=== PATIENT | male | born 1970 | race Caucasian/White ===

== ENCOUNTER → 2022-02-20 | Outpatient (CLI) | payer OTHER ==
[~2022-02-20] MED LIST: FUROSEMIDE INJ 10 MG/ML 4 ML VIAL ONE
== END ==
LOC: NM 10:01
PROVIDERS: ATTEND Urology
DX: N13.30 Unspecified hydronephrosis (principal)
CPT/HCPCS: 78708; A9562; J1940

== ENCOUNTER → 2022-07-24 | Outpatient (CLI) | payer OTHER ==
[2022-07-21 10:57] LABS: ANION GAP 18.2 mmol/L (8-16); CALCIUM 9.7 mg/dL (8.4-10.2); CREATININE, SERUM 1.08 mg/dL (0.72-1.25); POTASSIUM 4.2 mmol/L (3.5-5.1)
[~2022-07-24] MED LIST changes: +CINNAMON500 MG PO; +FISH OIL PO; -FUROSEMIDE INJ 10 MG/ML 4 ML VIAL ONE; +GLYBURIDE-METF1 EAC1 PO; +JARDIANCE10 MG PO; +KRILL OIL500 MG PO; +LIPITOR10 MG PO; +LOSARTAN POTAS100 MG PO; +METOPROLOL TART50 MG PO; +MULTI-VITAMIN1 EACH PO; +OZEMPIC0.25 MG/0. SC
== END | disposition home or self-care (01) ==
LOC: OR 05:59 → LAB 06:00 → EDSTATUS 08:00
PROVIDERS: ATTEND Urology
DX: N20.0 Calculus of kidney (principal); Z53.8 Procedure and treatment not carried out for other reasons
CPT/HCPCS: 36415; 74018; 80048; 82948; 93005

== ENCOUNTER → 2022-09-04 | Day surgery (SDC) | payer OTHER ==
[2022-09-02 15:35] LABS: CALCIUM 9.4 mg/dL (8.4-10.2); CREATININE, SERUM 1.11 mg/dL (0.72-1.25)
[~2022-09-04] MED LIST changes: +ACETAMINOPHEN 1000 MG/100 ML 100 ML IV ONE; +CEFTRIAXONE 1 GM VIAL ONE; +DEXAMETHASONE SOD PHOS INJ 4 MG/ML SDV ONE; +EPHEDRINE SULFATE INJ 50 MG/ML VIAL ONE; +FENTANYL CITRATE/PF 100MCG/2 ML INJ ONE; +IOPAMIDOL 610MG/1ML 300 MG/ML VIAL IV ONE; +LACTATED RINGER'S 1,000 ML ONE; +LIDOCAINE HCL 2% LOCAL INJ 5 ML SDV VIAL INJ ONE; +ONDANSETRON HCL INJ 2MG/ML 2ML 2 MG/ML VIAL ONE; +PHENYLEPHRINE HCL 1% 10 MG/ML VIAL ONE; +POVIDONE IODINE 0.05% 0.05 % ML PO ONE; +PROPOFOL IV EMULSION 10 MG/ML 20 ML VIAL ONE; +SEVOFLURANE INHAL SOLN 250 ML PEN BTL ONE
[2022-09-04 07:54] VITALS: TEMP 97
[2022-09-04 08:40] VITALS: BP 107/70; RESP 16; O2SAT 97
== END | disposition home or self-care (01) ==
LOC: OR 05:58
PROVIDERS: ATTEND Urology
DX: N20.0 Calculus of kidney (principal); N13.30 Unspecified hydronephrosis; Z01.812 Encounter for preprocedural laboratory examination; Z01.818 Encounter for other preprocedural examination; Z79.84 Long term (current) use of oral hypoglycemic drugs; Z79.85 Long-term (current) use of injectable non-insulin antidiabetic drugs; Z79.899 Other long term (current) drug therapy
CPT/HCPCS: 36415 ×2; 50590; 52332; 74018; 80048; 82948; C1758; C1769; C2617; J0131; J0696; J1100; J2001; J2370; J2405; J2704; J3010; J7121; Q9967

== ENCOUNTER → 2022-09-18 | Day surgery (SDC) | payer OTHER ==
[2022-09-15 15:47] LABS: BASOPHILS # (AUTO) 0.2 (0.0-0.1); BASOPHILS % 1.9 % (0.0-1.0); EOSINOPHILS # (AUTO) 0.5 (0.0-0.4); EOSINOPHILS % 5.8 % (0.0-6.0); HEMATOCRIT 40.2 % (38.2-49.6); HEMOGLOBIN 13.3 g/dL (14.0-18.0); LYMPHOCYTES # (AUTO) 2.4 (1.0-3.2); LYMPHOCYTES % 27.2 % (18.0-39.1); MEAN CORPUSCULAR HEMOGLOBIN 28.7 pg (28-32); MEAN CORPUSCULAR HGB CONC 33.1 g/dL (31-35); MEAN CORPUSCULAR VOLUME 86.8 fL (81-99); MONOCYTES # (AUTO) 0.7 (0.2-0.8); NEUTROPHILS # (AUTO) 5.1 (2.1-6.9); NEUTROPHILS % 56.7 % (38.7-80.0); PLATELET COUNT 314 x10e3/uL (140-360); RED BLOOD COUNT 4.63 x10e6/uL (4.3-5.7); RED CELL DISTRIBUTION WIDTH 13.5 % (11.7-14.4)
[2022-09-15 16:05] LABS: ANION GAP 14.7 mmol/L (8-16); CALCIUM 9.6 mg/dL (8.4-10.2); CREATININE, SERUM 1.09 mg/dL (0.72-1.25); POTASSIUM 4.7 mmol/L (3.5-5.1)
[~2022-09-18] MED LIST changes: -ACETAMINOPHEN 1000 MG/100 ML 100 ML IV ONE; -DEXAMETHASONE SOD PHOS INJ 4 MG/ML SDV ONE; -EPHEDRINE SULFATE INJ 50 MG/ML VIAL ONE; -FENTANYL CITRATE/PF 100MCG/2 ML INJ ONE; +KETAMINE HCL INJ 50 MG/ML 10 ML VIAL ONE; -ONDANSETRON HCL INJ 2MG/ML 2ML 2 MG/ML VIAL ONE; -SEVOFLURANE INHAL SOLN 250 ML PEN BTL ONE
[2022-09-18 09:45] VITALS: BP 122/78
== END | disposition home or self-care (01) ==
LOC: OR 05:53
PROVIDERS: ATTEND Urology
DX: N20.0 Calculus of kidney (principal); N13.5 Crossing vessel and stricture of ureter without hydronephrosis; N13.30 Unspecified hydronephrosis; Z46.6 Encounter for fitting and adjustment of urinary device; N40.1 Benign prostatic hyperplasia with lower urinary tract symptoms; I10 Essential (primary) hypertension; E11.9 Type 2 diabetes mellitus without complications; E66.01 Morbid (severe) obesity due to excess calories; Z01.812 Encounter for preprocedural laboratory examination; Z01.818 Encounter for other preprocedural examination; Z79.84 Long term (current) use of oral hypoglycemic drugs; Z79.85 Long-term (current) use of injectable non-insulin antidiabetic drugs; Z79.899 Other long term (current) drug therapy; Z68.36 Body mass index [BMI] 36.0-36.9, adult; Z87.891 Personal history of nicotine dependence
CPT/HCPCS: 36415 ×2; 52351; 71046; 74018; 74420; 80048; 82948; 85025; C1758 ×2; C1769; J0696; J2001; J2370; J2704; J7121; Q9967

== ENCOUNTER → 2022-10-27 | Outpatient (CLI) | payer OTHER ==
[~2022-10-27] MED LIST changes: +FENTANYL CITRATE/PF 100MCG/2 ML INJ ONE; +IOPAMIDOL 370 MG/ML 100 ML INFUS..BTL INJ ONE; -IOPAMIDOL 610MG/1ML 300 MG/ML VIAL IV ONE; -KETAMINE HCL INJ 50 MG/ML 10 ML VIAL ONE; -LACTATED RINGER'S 1,000 ML ONE; +LIDOCAINE HCL 1% LOCAL INJ 20 ML VIAL ONE; -LIDOCAINE HCL 2% LOCAL INJ 5 ML SDV VIAL INJ ONE; +MIDAZOLAM HCL 2 MG/2 ML VIAL ONE; -PHENYLEPHRINE HCL 1% 10 MG/ML VIAL ONE; -POVIDONE IODINE 0.05% 0.05 % ML PO ONE; -PROPOFOL IV EMULSION 10 MG/ML 20 ML VIAL ONE; +SODIUM CHLORIDE 0.9% 250ML 250 ML ONE
[2022-10-27 13:46] LABS: BASOPHILS # (AUTO) 0.1 (0.0-0.1); BASOPHILS % 1.5 % (0.0-1.0); EOSINOPHILS # (AUTO) 0.5 (0.0-0.4); EOSINOPHILS % 5.7 % (0.0-6.0); HEMATOCRIT 40.1 % (38.2-49.6); HEMOGLOBIN 13.2 g/dL (14.0-18.0); LYMPHOCYTES # (AUTO) 2.7 (1.0-3.2); LYMPHOCYTES % 28.9 % (18.0-39.1); MEAN CORPUSCULAR HGB CONC 32.9 g/dL (31-35); MEAN CORPUSCULAR VOLUME 88.1 fL (81-99); MONOCYTES # (AUTO) 0.9 (0.2-0.8); MONOCYTES % 10.1 % (4.4-11.3); NEUTROPHILS # (AUTO) 4.9 (2.1-6.9); NEUTROPHILS % 53.3 % (38.7-80.0); PLATELET COUNT 327 x10e3/uL (140-360); RED BLOOD COUNT 4.55 x10e6/uL (4.3-5.7); RED CELL DISTRIBUTION WIDTH 13.5 % (11.7-14.4)
[2022-10-27 13:57] LABS: ANION GAP 15.8 mmol/L (8-16); CALCIUM 9.6 mg/dL (8.4-10.2); CREATININE, SERUM 0.93 mg/dL (0.72-1.25); POTASSIUM 4.8 mmol/L (3.5-5.1)
[2022-10-27 13:58] LABS: INR 0.89; PROTHROMBIN TIME 12.5 seconds (11.9-14.5)
[2022-10-27 13:59] LABS: PARTIAL THROMBOPLASTIN TIME 25.8 seconds (23.8-35.5)
== END ==
LOC: US 13:18
PROVIDERS: ATTEND Urology
DX: Z43.6 Encounter for attention to other artificial openings of urinary tract (principal)
CPT/HCPCS: 36415; 76942; 80048; 85025; 85610; 85730; J0696; J2001; J2250; J3010; J7050; Q9967; 50432; 99152; 99153

== ENCOUNTER 2022-11-09 17:17 | Emergency (ER) | payer OTHER ==
[~2022-11-09] VITALS: Ht 193 cm; Wt 122.5 kg
[~2022-11-09 17:17] MED LIST changes: -CEFTRIAXONE 1 GM VIAL ONE; -FENTANYL CITRATE/PF 100MCG/2 ML INJ ONE; -IOPAMIDOL 370 MG/ML 100 ML INFUS..BTL INJ ONE; -LIDOCAINE HCL 1% LOCAL INJ 20 ML VIAL ONE; -MIDAZOLAM HCL 2 MG/2 ML VIAL ONE; -SODIUM CHLORIDE 0.9% 250ML 250 ML ONE
[2022-11-09 19:08] LABS: BASOPHILS # (AUTO) 0.1 (0.0-0.1); BASOPHILS % 0.5 % (0.0-1.0); EOSINOPHILS % 0.4 % (0.0-6.0); HEMATOCRIT 35.6 % (38.2-49.6); HEMOGLOBIN 12.1 g/dL (14.0-18.0); LYMPHOCYTES # (AUTO) 0.6 (1.0-3.2); LYMPHOCYTES % 6.7 % (18.0-39.1); MEAN CORPUSCULAR HEMOGLOBIN 28.8 pg (28-32); MEAN CORPUSCULAR VOLUME 84.8 fL (81-99); MONOCYTES # (AUTO) 1.2 (0.2-0.8); MONOCYTES % 13.4 % (4.4-11.3); NEUTROPHILS # (AUTO) 7.2 (2.1-6.9); NEUTROPHILS % 78.3 % (38.7-80.0); PLATELET COUNT 258 x10e3/uL (140-360); RED CELL DISTRIBUTION WIDTH 13.8 % (11.7-14.4)
[2022-11-09 19:15] LABS: INR 0.96; PROTHROMBIN TIME 13.3 seconds (11.9-14.5)
[2022-11-09 19:16] LABS: PARTIAL THROMBOPLASTIN TIME 27.7 seconds (23.8-35.5)
[2022-11-09 19:22] LABS: ALBUMIN 2.6 g/dL (3.5-5.0); ALBUMIN/GLOBULIN RATIO 0.5 (0.8-2.0); ANION GAP 17.5 mmol/L (8-16); CALCIUM 9.5 mg/dL (8.4-10.2); CREATININE, SERUM 1.98 mg/dL (0.72-1.25); POTASSIUM 3.5 mmol/L (3.5-5.1)
[2022-11-09] MEDS ORDERED: PAXLOVID 300-11 EACH PO (20:00)
[2022-11-09 20:46] VITALS: BP 108/92; PULSE 94; RESP 16; TEMP 98.4; O2SAT 100
== END 2022-11-09 20:49 | disposition home or self-care (01) ==
LOC: ER 17:21
DX: R05.9 Cough, unspecified (principal); U07.1 COVID-19; E11.65 Type 2 diabetes mellitus with hyperglycemia; I10 Essential (primary) hypertension; Z87.442 Personal history of urinary calculi
CPT/HCPCS: 36415; 71045; 80053; 85025; 85610; 85730; 87040; 99284; U0002

== ENCOUNTER → 2023-10-01 | Outpatient (REF) | payer OTHER ==
[~2023-10-01] MED LIST changes: +BANABA LEAF PO; +CEPHALEXIN500 MG PO; +CINNAMON PO; +CIPRO500 MG PO; +NEURONTIN100 MG PO; +ONDANSETRON ODT4 MG SL; +PAXLOVID 300-11 EACH PO; +SENOKOT-S TABL1 EACH PO; +TYLENOL 3 PO
== END ==
LOC: RAD 10:43
PROVIDERS: ATTEND Urology
DX: N20.0 Calculus of kidney (principal)
CPT/HCPCS: 74018

== ENCOUNTER → 2023-12-14 | Day surgery (SDC) | payer OTHER ==
[2023-12-13 11:37] LABS: ANION GAP 14.8 mmol/L (8-16); CALCIUM 9.5 mg/dL (8.4-10.2); CREATININE, SERUM 3.3 mg/dL (0.72-1.25); POTASSIUM 4.8 mmol/L (3.5-5.1)
[~2023-12-14] MED LIST changes: +DEXAMETHASONE SOD PHOS INJ 4 MG/ML SDV ONE; +FENTANYL CITRATE/PF 100MCG/2 ML INJ ONE; +GENTAMICIN SULFATE 40 MG/ML 2 ML VIAL ONE; +IOPAMIDOL 610MG/1ML 300 MG/ML VIAL IV ONE; +LIDOCAINE HCL 2% LOCAL INJ 5 ML SDV VIAL INJ ONE; +ONDANSETRON HCL INJ 2MG/ML 2ML 2 MG/ML VIAL ONE; +PROPOFOL IV EMULSION 10 MG/ML 20 ML VIAL ONE; +SEVOFLURANE INHAL SOLN 250 ML PEN BTL ONE
[2023-12-14] MEDS: LACTATED RINGER'S 1,000 ML ONE (11:55)
[2023-12-14] MEDS: CEFAZOLIN SODIUM 2 GM ONE (11:56)
[2023-12-14] MEDS: ONDANSETRON HCL INJ 2MG/ML 2ML 2 MG/ML VIAL ONE (13:56)
[2023-12-14 14:25] VITALS: BP 155/93; PULSE 87; RESP 16; O2SAT 97
== END | disposition home or self-care (01) ==
LOC: OR 11:12
PROVIDERS: ATTEND Urology
DX: N20.0 Calculus of kidney (principal); Z46.6 Encounter for fitting and adjustment of urinary device; N39.0 Urinary tract infection, site not specified; N32.89 Other specified disorders of bladder; G47.33 Obstructive sleep apnea (adult) (pediatric); I10 Essential (primary) hypertension; E78.5 Hyperlipidemia, unspecified; E11.9 Type 2 diabetes mellitus without complications; E66.9 Obesity, unspecified; Z88.1 Allergy status to other antibiotic agents; Z01.810 Encounter for preprocedural cardiovascular examination; Z01.812 Encounter for preprocedural laboratory examination; Z01.818 Encounter for other preprocedural examination; Z79.84 Long term (current) use of oral hypoglycemic drugs; Z79.85 Long-term (current) use of injectable non-insulin antidiabetic drugs; Z79.899 Other long term (current) drug therapy
CPT/HCPCS: 36415; 52332; 52351; 71046; 74420; 80048; 87086; 93005; C1758; C1766; C2617; J1100; J1580; J2001; J2405; J2704; J3010; J7121; Q9967

== ENCOUNTER → 2024-03-24 | Outpatient (REF) | payer OTHER ==
[~2024-03-24] MED LIST changes: -DEXAMETHASONE SOD PHOS INJ 4 MG/ML SDV ONE; -FENTANYL CITRATE/PF 100MCG/2 ML INJ ONE; -GENTAMICIN SULFATE 40 MG/ML 2 ML VIAL ONE; -IOPAMIDOL 610MG/1ML 300 MG/ML VIAL IV ONE; -LIDOCAINE HCL 2% LOCAL INJ 5 ML SDV VIAL INJ ONE; -ONDANSETRON HCL INJ 2MG/ML 2ML 2 MG/ML VIAL ONE; -PROPOFOL IV EMULSION 10 MG/ML 20 ML VIAL ONE; -SEVOFLURANE INHAL SOLN 250 ML PEN BTL ONE
== END ==
LOC: RAD 11:50
PROVIDERS: ATTEND Urology
DX: N20.0 Calculus of kidney (principal)
CPT/HCPCS: 74018

== ENCOUNTER 2024-04-04 17:00 | Inpatient (IN) | payer OTHER ==
[~2024-04-04] VITALS: Ht 182.9 cm; Wt 112.2 kg
[2024-04-04 18:13] LABS: BASOPHILS # (AUTO) 0.1 (0.0-0.1); BASOPHILS % 1.2 % (0.0-1.0); EOSINOPHILS # (AUTO) 0.3 (0.0-0.4); EOSINOPHILS % 3.7 % (0.0-6.0); HEMATOCRIT 28.6 % (38.2-49.6); HEMOGLOBIN 8.3 g/dL (14.0-18.0); LYMPHOCYTES # (AUTO) 1.7 (1.0-3.2); LYMPHOCYTES % 22.4 % (18.0-39.1); MEAN CORPUSCULAR HEMOGLOBIN 27.8 pg (28-32); MEAN CORPUSCULAR VOLUME 95.7 fL (81-99); MONOCYTES # (AUTO) 0.6 (0.2-0.8); MONOCYTES % 8.4 % (4.4-11.3); NEUTROPHILS # (AUTO) 4.7 (2.1-6.9); NEUTROPHILS % 62.6 % (38.7-80.0); PLATELET COUNT 430 x10e3/uL (140-360); RED BLOOD COUNT 2.99 x10e6/uL (4.3-5.7); RED CELL DISTRIBUTION WIDTH 15.1 % (11.7-14.4); WHITE BLOOD COUNT 7.51 x10e3/uL (4.8-10.8)
[2024-04-04 18:30] LABS: ALBUMIN 3.3 g/dL (3.5-5.0); ALBUMIN/GLOBULIN RATIO 0.8 (0.8-2.0); ANION GAP 14.4 mmol/L (8-16); BILIRUBIN,TOTAL 0.2 mg/dL (0.2-1.2); CALCIUM 9.6 mg/dL (8.4-10.2); CREATININE, SERUM 3.9 mg/dL (0.72-1.25); TOTAL PROTEIN 7.5 g/dL (6.5-8.1)
[2024-04-04 18:32] LABS: POTASSIUM 5.4 mmol/L (3.5-5.1)
[2024-04-04 18:33] LABS: BILIRUBIN,URINE NEGATIVE (NEGATIVE); CLARITY,URINE TURBID (CLEAR); COLOR,URINE YELLOW (YELLOW); GLUCOSE, URINE NEGATIVE (NEGATIVE); KETONES,URINE NEGATIVE (NEGATIVE); LEUKOCYTE ESTERASE ,URINE LARGE (NEGATIVE); PH,URINE 6 (5 - 7); PROTEIN,URINE DIPSTICK >=300 (NEGATIVE); URINE UROBILINOGEN 1 mg/dL (0.2 - 1)
[2024-04-04 18:35] LABS: TROPONIN I 0.002 ng/mL (0-0.300)
[2024-04-04 18:44] LABS: AMORPHOUS SEDIMENT,URINE MODERATE (FEW); BACTERIA,URINE MODERATE /HPF; NITRITE,URINE POSITIVE (NEGATIVE)
[2024-04-04] MEDS: SODIUM CHLORIDE 0.9% 1000ML 1,000 ML IV SCH (20:07)
[2024-04-04] MEDS: SOD POLYSTYRENE SULFONATE SUSP 15 GM/60 ML BTL PO ONE (20:10)
[2024-04-04] MEDS: SODIUM BICARBONATE 8.4% INJ 50 ML SYR IV STA (20:14)
[2024-04-04] MEDS: INSULIN REGULAR, HUMAN 100 UNIT/1 ML IV ONE (20:16)
[2024-04-04] MEDS: CALCIUM GLUC 1 G/50 ML NACL 50 ML IV SCH (20:16)
[2024-04-04] MEDS: DEXTROSE 50% SYRINGE 50 ML IV STA (20:17)
[2024-04-04] MEDS ORDERED: CALCIUM GLUC 1 G/50 ML NACL 100 ML IV ONE (20:28)
[2024-04-04 21:00] VITALS: PULSE 118; RESP 20; O2SAT 97
[2024-04-04] MEDS: ALBUTEROL SULF 0.083% NEB SOLN 3 ML NEB NEB STA (21:07)
[2024-04-04] MEDS: METOPROLOL TARTRATE 50 MG TAB PO ONE (21:18)
[2024-04-04 21:48] VITALS: TEMP 97.8
[2024-04-04 22:59] VITALS: PULSE 108; RESP 15
[2024-04-04 23:47] VITALS: BP 150/62; PULSE 106; TEMP 98.1; O2SAT 98
[2024-04-05] VITALS (21 sets, daily range): BP systolic 100–137; BP diastolic 56–110; PULSE 86–119; RESP 12–20; TEMP 97.4–99; O2SAT 81–100
[2024-04-05] MEDS: Morphine 4mg INJECTION 4 MG/ML INJ IV PRN (00:23)
[2024-04-05 06:57] LABS: BASOPHILS # (AUTO) 0.1 (0.0-0.1); BASOPHILS % 0.9 % (0.0-1.0); EOSINOPHILS # (AUTO) 0.3 (0.0-0.4); EOSINOPHILS % 3.4 % (0.0-6.0); HEMATOCRIT 25.2 % (38.2-49.6); LYMPHOCYTES # (AUTO) 1.8 (1.0-3.2); LYMPHOCYTES % 22.3 % (18.0-39.1); MEAN CORPUSCULAR HEMOGLOBIN 28.2 pg (28-32); MONOCYTES # (AUTO) 0.9 (0.2-0.8); MONOCYTES % 10.9 % (4.4-11.3); NEUTROPHILS # (AUTO) 4.8 (2.1-6.9); NEUTROPHILS % 60.5 % (38.7-80.0); PLATELET COUNT 485 x10e3/uL (140-360); RED BLOOD COUNT 2.77 x10e6/uL (4.3-5.7); WHITE BLOOD COUNT 7.91 x10e3/uL (4.8-10.8)
[2024-04-05 07:10] LABS: HEMOGLOBIN 7.8 g/dL (14.0-18.0)
[2024-04-05 07:17] LABS: ANION GAP 15.1 mmol/L (8-16); CALCIUM 9.1 mg/dL (8.4-10.2); CREATININE, SERUM 3.91 mg/dL (0.72-1.25); POTASSIUM 4.1 mmol/L (3.5-5.1)
[2024-04-05] MEDS ORDERED: ONDANSETRON HCL 4 MG ORAL DISINTEGRATING TAB SL PRN (08:15)
[2024-04-05 09:13] LABS: % IRON SATURATION 11 % (15-50); IRON 30 ug/dL (65-175); TOTAL IRON BINDING CAPACITY 284 ug/dL (261-478); TRANSFERRIN 203 mg/dL (174-364)
[2024-04-05] MEDS: EMPAGLIFLOZIN 10 MG TABLET PO SCH (09:16)
[2024-04-05] MEDS: ONDANSETRON HCL INJ 2MG/ML 2ML 2 MG/ML VIAL IV PRN (09:18)
[2024-04-05] MEDS: METOPROLOL TARTRATE 50 MG TAB PO SCH (09:18)
[2024-04-05 09:48] LABS: FOLATE 14.8 ng/mL (7.0-15.4)
[2024-04-05] MEDS ORDERED: PROBIOTIC & AC1 EACH PO (17:26)
[2024-04-05] MEDS ORDERED: MANNOSE50 GM PO (17:32)
[2024-04-05] MEDS ORDERED: CRANBERRY465 MG PO (17:32)
[2024-04-05] MEDS ORDERED: PROBIOTIC1 EAC1 PO (17:36)
[2024-04-05] MEDS ORDERED: AZO CRANBERRY250 MG PO (17:41)
[2024-04-05] MEDS ORDERED: GENTAMICIN SULF15 G2 TOP (17:41)
[2024-04-05] MEDS ORDERED: INFLUENZA VIRUS VAC SPLIT INJ 0.5 ML SYR IM SCH (18:00)
[2024-04-05] MEDS: IRON SUCROSE 100 MG in SODIUM CHLORIDE 0.9% 100 ML IV SCH (18:04)
[2024-04-05] MEDS: EPOETIN ALFA-EPBX 10,000 UNIT/ML VIAL SC SCH (18:15)
[2024-04-05] MEDS: ATORVASTATIN 20 MG TAB PO SCH (21:19)
[2024-04-06] VITALS (8 sets, daily range): BP systolic 104–164; BP diastolic 67–107; PULSE 89–120; RESP 18–20; TEMP 97.3–98.1; O2SAT 97–100
[2024-04-06 05:35] LABS: BASOPHILS # (AUTO) 0.1 (0.0-0.1); BASOPHILS % 1.1 % (0.0-1.0); EOSINOPHILS # (AUTO) 0.3 (0.0-0.4); EOSINOPHILS % 3.9 % (0.0-6.0); HEMOGLOBIN 7.9 g/dL (14.0-18.0); LYMPHOCYTES # (AUTO) 0.9 (1.0-3.2); MEAN CORPUSCULAR HEMOGLOBIN 27.6 pg (28-32); MEAN CORPUSCULAR HGB CONC 30.4 g/dL (31-35); MEAN CORPUSCULAR VOLUME 90.9 fL (81-99); MONOCYTES # (AUTO) 0.9 (0.2-0.8); MONOCYTES % 13.5 % (4.4-11.3); NEUTROPHILS # (AUTO) 4.2 (2.1-6.9); NEUTROPHILS % 65.8 % (38.7-80.0); PLATELET COUNT 453 x10e3/uL (140-360); RED BLOOD COUNT 2.86 x10e6/uL (4.3-5.7); RED CELL DISTRIBUTION WIDTH 15.2 % (11.7-14.4); WHITE BLOOD COUNT 6.37 x10e3/uL (4.8-10.8)
[2024-04-06 06:18] LABS: CALCIUM 9.5 mg/dL (8.4-10.2); CREATININE, SERUM 3.31 mg/dL (0.72-1.25)
[2024-04-06 06:30] LABS: MAGNESIUM 1.9 MG/DL (1.3-2.1); PHOSPHORUS 4.9 MG/DL (2.3-4.7)
[2024-04-06] MEDS: SODIUM BICARBONATE 650 MG TAB PO SCH (08:37)
[2024-04-06] MEDS: FLUCONAZOLE 100 MG/NS 50 ML 50 ML IV SCH (12:02)
[2024-04-07 03:12] VITALS: BP 136/107; PULSE 104; RESP 20; TEMP 99.2; O2SAT 99
[2024-04-07 05:54] LABS: ABG HCO3 20 mmol/L (22-26); ABG PCO2 40 mmHg (35-45); ABG PH 7.31 (7.35-7.45); ABG PO2 71 mmHg (80-105); ABG TCO2 21
[2024-04-07 06:18] LABS: ANION GAP 15.1 mmol/L (8-16); CALCIUM 9.8 mg/dL (8.4-10.2); CREATININE, SERUM 3.22 mg/dL (0.72-1.25); POTASSIUM 4.1 mmol/L (3.5-5.1)
[2024-04-07 08:00] VITALS: BP 133/86; PULSE 110; RESP 19; TEMP 98; O2SAT 99
[2024-04-07] MEDS: POLYETHYLENE GLYCOL 3350 17 GM PACK PO SCH (09:46)
[2024-04-07] MEDS: SENNA-S TABLET PO SCH (09:46)
[2024-04-07] MEDS: PHENAZOPYRIDINE HCL 100 MG TAB PO SCH (09:46)
[2024-04-07 12:00] VITALS: BP 131/104; PULSE 100; RESP 19; TEMP 97.5; O2SAT 100
[2024-04-07 13:34] VITALS: BP 131/104; PULSE 100; RESP 19; TEMP 97.5; O2SAT 100
[2024-04-07] MEDS: HYDROCODONE/APAP 10MG-325MG TAB PO PRN (14:38)
[2024-04-07 16:02] VITALS: BP 122/76; PULSE 98; RESP 19; TEMP 97.8; O2SAT 100
[2024-04-07 20:00] VITALS: BP 156/78; PULSE 106; RESP 20; TEMP 97.8; O2SAT 100
[2024-04-08] VITALS (7 sets, daily range): BP systolic 125–185; BP diastolic 66–96; PULSE 91–122; RESP 19–20; TEMP 97.2–99.5; O2SAT 97–100
[2024-04-08 05:56] LABS: ANION GAP 14.9 mmol/L (8-16); CALCIUM 9.3 mg/dL (8.4-10.2); CREATININE, SERUM 3.16 mg/dL (0.72-1.25); POTASSIUM 3.9 mmol/L (3.5-5.1)
[2024-04-08 11:09] LABS: CREATININE,URINE RANDOM 41.03 mg/dL (63-166)
[2024-04-08] MEDS: TAMSULOSIN HCL 0.4 MG CAP PO SCH (16:00)
[2024-04-09] VITALS (8 sets, daily range): BP systolic 116–158; BP diastolic 69–104; PULSE 89–119; RESP 18–20; TEMP 97.9–98.3; O2SAT 97–100
[2024-04-10] VITALS (7 sets, daily range): BP systolic 126–152; BP diastolic 70–112; PULSE 100–125; RESP 16–20; TEMP 97.7–98.2; O2SAT 96–100
[2024-04-10 06:16] LABS: BASOPHILS # (AUTO) 0.1 (0.0-0.1); EOSINOPHILS # (AUTO) 0.2 (0.0-0.4); EOSINOPHILS % 3.9 % (0.0-6.0); HEMATOCRIT 24.7 % (38.2-49.6); HEMOGLOBIN 7.3 g/dL (14.0-18.0); LYMPHOCYTES % 21.2 % (18.0-39.1); MEAN CORPUSCULAR HGB CONC 29.6 g/dL (31-35); MEAN CORPUSCULAR VOLUME 94.6 fL (81-99); MONOCYTES # (AUTO) 0.8 (0.2-0.8); MONOCYTES % 16.8 % (4.4-11.3); NEUTROPHILS # (AUTO) 2.7 (2.1-6.9); NEUTROPHILS % 56.3 % (38.7-80.0); PLATELET COUNT 422 x10e3/uL (140-360); RED BLOOD COUNT 2.61 x10e6/uL (4.3-5.7); RED CELL DISTRIBUTION WIDTH 15.1 % (11.7-14.4); WHITE BLOOD COUNT 4.82 x10e3/uL (4.8-10.8)
[2024-04-10 06:45] LABS: ANION GAP 14.8 mmol/L (8-16); CALCIUM 9.5 mg/dL (8.4-10.2); CREATININE, SERUM 3.11 mg/dL (0.72-1.25); POTASSIUM 3.8 mmol/L (3.5-5.1)
[2024-04-10 07:21] LABS: MAGNESIUM 1.7 MG/DL (1.3-2.1); PHOSPHORUS 3.1 MG/DL (2.3-4.7)
[2024-04-10 08:03] LABS: TOTAL PROTEIN, URINE 202.2 mg/dL (1-14)
[2024-04-10] MEDS: SODIUM CHLORIDE 0.9% 250ML 250 ML IV ONE (09:50)
[2024-04-10] MEDS: FUROSEMIDE INJ 10 MG/ML 2 ML VIAL IV SCH (12:20)
[2024-04-10] MEDS: FLUCONAZOLE 100 MG/NS 50 ML 50 ML IV SCH (17:57)
[2024-04-11 01:22] VITALS: TEMP 98.2; O2SAT 98
[2024-04-11 02:02] VITALS: BP 142/91; PULSE 105; RESP 20; TEMP 98.2; O2SAT 98
[2024-04-11 05:16] VITALS: BP 143/98; PULSE 110; RESP 20; TEMP 98.4; O2SAT 98
[2024-04-11 06:05] LABS: CALCIUM 9.4 mg/dL (8.4-10.2); CREATININE, SERUM 3.09 mg/dL (0.72-1.25)
[2024-04-11 08:17] VITALS: BP 157/89; PULSE 107; RESP 19; TEMP 98.6; O2SAT 98
[2024-04-11 10:14] LABS: CALCIUM 9.1 mg/dL (8.7-10.2)
[2024-04-11 12:16] VITALS: BP 138/80; PULSE 119; RESP 20; TEMP 99.1; O2SAT 100
[2024-04-11 13:23] LABS: GLOBULIN TOTAL 3.6; SPE ALPHA 1 GLOBULIN 0.4; SPE ALPHA 2 GLOBULIN 1.1; SPE GAMMA GLOBULIN 1.2; SPE TOTAL PROTEIN 6.4
[2024-04-11 13:24] LABS: A/G RATIO 0.8; KAPPA/LAMBDA RATIO 1.25; LAMBDA LIGHT CHAINS 67.8
[2024-04-20] MEDS ORDERED: FLOMAX0.4 MG PO (15:37)
[2024-04-20] MEDS ORDERED: TYLENOL #3 (15:38)
== END 2024-04-11 13:30 | disposition home or self-care (01) | DRG 660 ==
LOC: ER 18:11 → ERHOLD 19:27 → ICU 23:35 → MED/SURG2 04-05 18:31
PROVIDERS: ADMIT Internal Medicine; ATTEND Internal Medicine
PROC: 4A133R1 Monitoring of Arterial Saturation, Peripheral, Percutaneous Approach (ICD-10-PCS; principal; 2024-04-06)
PROC: 30233N1 Transfusion of Nonautologous Red Blood Cells into Peripheral Vein, Percutaneous Approach (ICD-10-PCS; 2024-04-10)
PROC: 0T788DZ Dilation of Bilateral Ureters with Intraluminal Device, Via Natural or Artificial Opening Endoscopic (ICD-10-PCS; 2024-04-10)
PROC: 0TP98DZ Removal of Intraluminal Device from Ureter, Via Natural or Artificial Opening Endoscopic (ICD-10-PCS; 2024-04-10)
PROC: 0TF68ZZ Fragmentation in Right Ureter, Via Natural or Artificial Opening Endoscopic (ICD-10-PCS; 2024-04-10)
DX: N13.2 Hydronephrosis with renal and ureteral calculous obstruction (principal); E87.20 Acidosis, unspecified; L03.115 Cellulitis of right lower limb; L97.919 Non-pressure chronic ulcer of unspecified part of right lower leg with unspecified severity; E11.621 Type 2 diabetes mellitus with foot ulcer; E11.22 Type 2 diabetes mellitus with diabetic chronic kidney disease; I12.9 Hypertensive chronic kidney disease with stage 1 through stage 4 chronic kidney disease, or unspecified chronic kidney disease; N18.4 Chronic kidney disease, stage 4 (severe); N17.9 Acute kidney failure, unspecified; D63.1 Anemia in chronic kidney disease; E11.51 Type 2 diabetes mellitus with diabetic peripheral angiopathy without gangrene; E11.42 Type 2 diabetes mellitus with diabetic polyneuropathy; E87.5 Hyperkalemia; E78.5 Hyperlipidemia, unspecified; N13.9 Obstructive and reflux uropathy, unspecified; R31.29 Other microscopic hematuria; R30.0 Dysuria; E66.01 Morbid (severe) obesity due to excess calories; Z68.33 Body mass index [BMI] 33.0-33.9, adult; Z79.84 Long term (current) use of oral hypoglycemic drugs; Z79.85 Long-term (current) use of injectable non-insulin antidiabetic drugs; Z89.432 Acquired absence of left foot; Z89.421 Acquired absence of other right toe(s); Z87.440 Personal history of urinary (tract) infections; Z98.84 Bariatric surgery status; Z88.1 Allergy status to other antibiotic agents; Z87.891 Personal history of nicotine dependence
CPT/HCPCS: 36415; 51700; 74176; 74420; 80048; 80053; 81001; 81050; 82550; 82570; 82607; 82746; 82805; 82948; 83540; 83735; 83970; 84100; 84156; 84165; 84466; 84484; 84550; 85025; 86039; 86162; 86850; 86900; 86920; 87040; 87086; 93005; 94640; 94799; 99252; 99284; C1758; C1769; C2617; J0612; J0696; J1100; J1450; J1756; J1940; J2003; J2270; J2405; J2543; J7030; J7050; J7799; P9016

== ENCOUNTER 2024-04-24 07:09 | Inpatient (IN) | payer OTHER ==
[2024-04-24] VITALS (7 sets, daily range): BP systolic 127–151; BP diastolic 68–94; PULSE 78–95; RESP 16–20; TEMP 97.5–98.2; O2SAT 98–100
[~2024-04-24] VITALS: Ht 182.9 cm; Wt 112.0 kg
[~2024-04-24 07:09] MED LIST changes: +AZO CRANBERRY250 MG PO; +CRANBERRY465 MG PO; +FLOMAX0.4 MG PO; +GENTAMICIN SULF15 G2 TOP; +MANNOSE50 GM PO; +PROBIOTIC & AC1 EACH PO; +PROBIOTIC1 EAC1 PO; +TYLENOL #3
[2024-04-24 07:41] LABS: BASOPHILS # (AUTO) 0.2 (0.0-0.1); BASOPHILS % 1.7 % (0.0-1.0); EOSINOPHILS # (AUTO) 0.4 (0.0-0.4); EOSINOPHILS % 4.5 % (0.0-6.0); HEMATOCRIT 32.5 % (38.2-49.6); HEMOGLOBIN 9.5 g/dL (14.0-18.0); LYMPHOCYTES # (AUTO) 2.5 (1.0-3.2); LYMPHOCYTES % 27.6 % (18.0-39.1); MEAN CORPUSCULAR HEMOGLOBIN 27.8 pg (28-32); MEAN CORPUSCULAR HGB CONC 29.2 g/dL (31-35); MONOCYTES # (AUTO) 0.8 (0.2-0.8); MONOCYTES % 8.8 % (4.4-11.3); NEUTROPHILS # (AUTO) 5.1 (2.1-6.9); NEUTROPHILS % 56.4 % (38.7-80.0); PLATELET COUNT 523 x10e3/uL (140-360); RED BLOOD COUNT 3.42 x10e6/uL (4.3-5.7); RED CELL DISTRIBUTION WIDTH 15.7 % (11.7-14.4); WHITE BLOOD COUNT 9.06 x10e3/uL (4.8-10.8)
[2024-04-24] MEDS: SODIUM CHLORIDE 0.9% 1000ML 1,000 ML IV SCH (07:45)
[2024-04-24] MEDS ORDERED: ONDANSETRON HCL INJ 2MG/ML 2ML 2 MG/ML VIAL IV PRN (07:45)
[2024-04-24 07:55] LABS: INR 0.94; PARTIAL THROMBOPLASTIN TIME 25.5 seconds (23.8-35.5); PROTHROMBIN TIME 13.1 seconds (11.9-14.5)
[2024-04-24] MEDS: SODIUM CHLORIDE 0.9% 1000ML 1,000 ML IV STA (08:07)
[2024-04-24] MEDS: Morphine 4mg INJECTION 4 MG/ML INJ IV STA (08:08)
[2024-04-24] MEDS: ONDANSETRON HCL INJ 2MG/ML 2ML 2 MG/ML VIAL IV STA (08:08)
[2024-04-24 08:09] LABS: ALBUMIN 3.1 g/dL (3.5-5.0); ALBUMIN/GLOBULIN RATIO 0.7 (0.8-2.0); ANION GAP 15.5 mmol/L (8-16); BILIRUBIN,TOTAL 0.2 mg/dL (0.2-1.2); CALCIUM 9.6 mg/dL (8.4-10.2); CREATININE, SERUM 2.61 mg/dL (0.72-1.25); MAGNESIUM 1.8 MG/DL (1.3-2.1); POTASSIUM 4.5 mmol/L (3.5-5.1); TOTAL PROTEIN 7.6 g/dL (6.5-8.1)
[2024-04-24 08:16] LABS: CLARITY,URINE CLOUDY (CLEAR); COLOR,URINE YELLOW (YELLOW)
[2024-04-24 08:17] LABS: BILIRUBIN,URINE NEGATIVE (NEGATIVE); GLUCOSE, URINE NEGATIVE (NEGATIVE); KETONES,URINE NEGATIVE (NEGATIVE); LEUKOCYTE ESTERASE ,URINE LARGE (NEGATIVE); NITRITE,URINE NEGATIVE (NEGATIVE); PH,URINE 6 (5 - 7); PROTEIN,URINE DIPSTICK >=300 (NEGATIVE); URINE UROBILINOGEN 0.2 mg/dL (0.2 - 1)
[2024-04-24 08:31] LABS: BACTERIA,URINE MODERATE /HPF; EPITHELIAL CELLS,URINE FEW /LPF
[2024-04-24 08:32] LABS: RBC,URINE 0-5 /HPF (0-5); WBC,URINE (MAN) >50 /HPF (0-5)
[2024-04-24] MEDS: DEXTROSE 50% SYRINGE 50 ML IV ONE (09:14)
[2024-04-24] MEDS ORDERED: DEXTROSE 50% SYRINGE 50 ML IV PRN (09:15)
[2024-04-24] MEDS: INSULIN LISPRO 100 UNIT/1 ML 3ML VIAL SQ SCH (11:30)
[2024-04-24] MEDS ORDERED: PROPOFOL IV EMULSION 10 MG/ML 20 ML VIAL ONE (13:53)
[2024-04-24] MEDS ORDERED: MIDAZOLAM HCL 2 MG/2 ML VIAL ONE (13:53)
[2024-04-24] MEDS ORDERED: FENTANYL CITRATE/PF 100MCG/2 ML INJ ONE (13:53)
[2024-04-24] MEDS ORDERED: LIDOCAINE HCL 2% LOCAL INJ 5 ML SDV VIAL INJ ONE (13:56)
[2024-04-24] MEDS: METOPROLOL TARTRATE 50 MG TAB PO SCH (17:00)
[2024-04-24] MEDS ORDERED: PHENAZOPYRIDINE HCL 100 MG TAB PO PRN (17:45)
[2024-04-24] MEDS: Morphine 4mg INJECTION 4 MG/ML INJ IV PRN (21:14)
[2024-04-25] VITALS (7 sets, daily range): BP systolic 110–151; BP diastolic 71–94; PULSE 76–115; RESP 18–22; TEMP 97.5–98.1; O2SAT 96–100
[2024-04-25] MEDS: ACETAMINOPHEN/CODEINE 300MG - 30MG TAB PO PRN (05:40)
[2024-04-25 05:50] LABS: BASOPHILS % 0.3 % (0.0-1.0); HEMATOCRIT 30.4 % (38.2-49.6); HEMOGLOBIN 9.5 g/dL (14.0-18.0); LYMPHOCYTES # (AUTO) 0.4 (1.0-3.2); LYMPHOCYTES % 2.8 % (18.0-39.1); MEAN CORPUSCULAR HEMOGLOBIN 28.2 pg (28-32); MEAN CORPUSCULAR HGB CONC 31.3 g/dL (31-35); MEAN CORPUSCULAR VOLUME 90.2 fL (81-99); MONOCYTES # (AUTO) 0.4 (0.2-0.8); MONOCYTES % 2.5 % (4.4-11.3); NEUTROPHILS # (AUTO) 14.9 (2.1-6.9); NEUTROPHILS % 93.6 % (38.7-80.0); PLATELET COUNT 542 x10e3/uL (140-360); RED BLOOD COUNT 3.37 x10e6/uL (4.3-5.7); RED CELL DISTRIBUTION WIDTH 15.5 % (11.7-14.4); WHITE BLOOD COUNT 15.89 x10e3/uL (4.8-10.8)
[2024-04-25 06:15] LABS: ALBUMIN 3.1 g/dL (3.5-5.0); ALBUMIN/GLOBULIN RATIO 0.7 (0.8-2.0); ANION GAP 16.3 mmol/L (8-16); BILIRUBIN,TOTAL 0.3 mg/dL (0.2-1.2); CALCIUM 8.9 mg/dL (8.4-10.2); CREATININE, SERUM 3.14 mg/dL (0.72-1.25); TOTAL PROTEIN 7.3 g/dL (6.5-8.1)
[2024-04-25 06:34] LABS: POTASSIUM 5.3 mmol/L (3.5-5.1)
[2024-04-25] MEDS: GLIPIZIDE 5 MG TAB ER PO SCH (08:19)
[2024-04-25] MEDS: TAMSULOSIN HCL 0.4 MG CAP PO SCH (08:20)
[2024-04-26] VITALS (7 sets, daily range): BP systolic 134–151; BP diastolic 71–95; PULSE 88–107; RESP 18–20; TEMP 97.5–98.3; O2SAT 98–100
[2024-04-26 05:41] LABS: BASOPHILS # (AUTO) 0.1 (0.0-0.1); BASOPHILS % 0.5 % (0.0-1.0); EOSINOPHILS # (AUTO) 0.1 (0.0-0.4); EOSINOPHILS % 0.8 % (0.0-6.0); HEMATOCRIT 29.8 % (38.2-49.6); HEMOGLOBIN 9.3 g/dL (14.0-18.0); LYMPHOCYTES # (AUTO) 1.3 (1.0-3.2); LYMPHOCYTES % 12.1 % (18.0-39.1); MEAN CORPUSCULAR HEMOGLOBIN 28.1 pg (28-32); MEAN CORPUSCULAR HGB CONC 31.2 g/dL (31-35); MONOCYTES # (AUTO) 0.9 (0.2-0.8); MONOCYTES % 8.6 % (4.4-11.3); NEUTROPHILS % 77.2 % (38.7-80.0); PLATELET COUNT 531 x10e3/uL (140-360); RED BLOOD COUNT 3.31 x10e6/uL (4.3-5.7); RED CELL DISTRIBUTION WIDTH 15.7 % (11.7-14.4); WHITE BLOOD COUNT 10.39 x10e3/uL (4.8-10.8)
[2024-04-26 10:12] LABS: CALCIUM 8.7 mg/dL (8.7-10.2)
[2024-04-27] VITALS (8 sets, daily range): BP systolic 123–152; BP diastolic 69–99; PULSE 73–117; RESP 18–20; TEMP 97–97.8; O2SAT 96–100
[2024-04-28] VITALS (7 sets, daily range): BP systolic 137–175; BP diastolic 71–89; PULSE 81–117; RESP 19–20; TEMP 97.3–99; O2SAT 95–100
[2024-04-28 06:53] LABS: BASOPHILS # (AUTO) 0.1 (0.0-0.1); BASOPHILS % 1.2 % (0.0-1.0); EOSINOPHILS # (AUTO) 0.4 (0.0-0.4); HEMATOCRIT 32.5 % (38.2-49.6); HEMOGLOBIN 9.6 g/dL (14.0-18.0); LYMPHOCYTES # (AUTO) 1.9 (1.0-3.2); LYMPHOCYTES % 26.7 % (18.0-39.1); MEAN CORPUSCULAR HEMOGLOBIN 28.2 pg (28-32); MEAN CORPUSCULAR HGB CONC 29.5 g/dL (31-35); MEAN CORPUSCULAR VOLUME 95.6 fL (81-99); MONOCYTES # (AUTO) 0.8 (0.2-0.8); MONOCYTES % 11.6 % (4.4-11.3); NEUTROPHILS # (AUTO) 3.9 (2.1-6.9); NEUTROPHILS % 53.7 % (38.7-80.0); PLATELET COUNT 496 x10e3/uL (140-360); RED CELL DISTRIBUTION WIDTH 15.9 % (11.7-14.4); WHITE BLOOD COUNT 7.22 x10e3/uL (4.8-10.8)
[2024-04-28 07:14] LABS: ANION GAP 14.4 mmol/L (8-16); CALCIUM 9.7 mg/dL (8.4-10.2); CREATININE, SERUM 2.12 mg/dL (0.72-1.25); POTASSIUM 4.4 mmol/L (3.5-5.1)
[2024-04-28] MEDS ORDERED: FENTANYL CITRATE/PF 100MCG/2 ML INJ ONE (13:13)
[2024-04-28] MEDS ORDERED: LIDOCAINE HCL 2% LOCAL INJ 5 ML SDV VIAL INJ ONE ×2 (13:13→13:15)
[2024-04-28] MEDS ORDERED: ROCURONIUM BROMIDE 1 ML IV ONE (13:13)
[2024-04-28] MEDS ORDERED: PROPOFOL IV EMULSION 10 MG/ML 20 ML VIAL ONE (13:13)
[2024-04-28] MEDS ORDERED: ONDANSETRON HCL INJ 2MG/ML 2ML 2 MG/ML VIAL ONE (14:53)
[2024-04-28] MEDS ORDERED: METOCLOPRAMIDE HCL 10 MG/2ML VIAL ONE (14:53)
[2024-04-28] MEDS ORDERED: DIPHENHYDRAMINE HCL INJ 50 MG/ML VIAL ONE (14:54)
[2024-04-28] MEDS ORDERED: DEXAMETHASONE SOD PHOS INJ 4 MG/ML SDV ONE (14:55)
[2024-04-28] MEDS ORDERED: ACETAMINOPHEN 1000 MG/100 ML 100 ML IV ONE (15:08)
[2024-04-28] MEDS ORDERED: PHENYLEPHRINE HCL 1% 10 MG/ML VIAL ONE (15:34)
[2024-04-28] MEDS ORDERED: NEOSTIGMINE 1 MG/ML 10ML VIAL ONE (15:39)
[2024-04-28] MEDS ORDERED: GLYCOPYRROLATE INJ 0.2 MG/ML VIAL ONE (15:39)
[2024-04-29] VITALS (7 sets, daily range): BP systolic 130–165; BP diastolic 66–99; PULSE 80–111; RESP 18–20; TEMP 97.2–97.9; O2SAT 98–100
[2024-04-29 05:59] LABS: BASOPHILS % 0.4 % (0.0-1.0); EOSINOPHILS # (AUTO) 0.1 (0.0-0.4); EOSINOPHILS % 0.5 % (0.0-6.0); HEMATOCRIT 29.5 % (38.2-49.6); MEAN CORPUSCULAR HGB CONC 30.5 g/dL (31-35); MEAN CORPUSCULAR VOLUME 91.9 fL (81-99); MONOCYTES # (AUTO) 0.7 (0.2-0.8); MONOCYTES % 7.3 % (4.4-11.3); NEUTROPHILS # (AUTO) 7.4 (2.1-6.9); PLATELET COUNT 431 x10e3/uL (140-360); RED BLOOD COUNT 3.21 x10e6/uL (4.3-5.7); RED CELL DISTRIBUTION WIDTH 15.6 % (11.7-14.4); WHITE BLOOD COUNT 9.29 x10e3/uL (4.8-10.8)
[2024-04-29 06:25] LABS: ANION GAP 14.9 mmol/L (8-16); CALCIUM 9.5 mg/dL (8.4-10.2); CREATININE, SERUM 2.34 mg/dL (0.72-1.25); MAGNESIUM 1.8 MG/DL (1.3-2.1); POTASSIUM 4.9 mmol/L (3.5-5.1)
[2024-04-30] VITALS (8 sets, daily range): BP systolic 132–167; BP diastolic 67–88; PULSE 78–104; RESP 18–21; TEMP 97.2–97.9; O2SAT 95–100
[2024-04-30 08:20] LABS: BASOPHILS # (AUTO) 0.1 (0.0-0.1); BASOPHILS % 1.1 % (0.0-1.0); EOSINOPHILS # (AUTO) 0.4 (0.0-0.4); EOSINOPHILS % 6.5 % (0.0-6.0); HEMATOCRIT 28.3 % (38.2-49.6); HEMOGLOBIN 8.4 g/dL (14.0-18.0); LYMPHOCYTES # (AUTO) 1.7 (1.0-3.2); LYMPHOCYTES % 25.2 % (18.0-39.1); MEAN CORPUSCULAR HEMOGLOBIN 28.1 pg (28-32); MEAN CORPUSCULAR HGB CONC 29.7 g/dL (31-35); MEAN CORPUSCULAR VOLUME 94.6 fL (81-99); MONOCYTES # (AUTO) 0.7 (0.2-0.8); MONOCYTES % 11.1 % (4.4-11.3); NEUTROPHILS # (AUTO) 3.7 (2.1-6.9); NEUTROPHILS % 55.5 % (38.7-80.0); PLATELET COUNT 439 x10e3/uL (140-360); RED BLOOD COUNT 2.99 x10e6/uL (4.3-5.7); RED CELL DISTRIBUTION WIDTH 15.6 % (11.7-14.4); WHITE BLOOD COUNT 6.64 x10e3/uL (4.8-10.8)
[2024-04-30 08:51] LABS: ANION GAP 14.1 mmol/L (8-16); CALCIUM 9.1 mg/dL (8.4-10.2); CREATININE, SERUM 2.25 mg/dL (0.72-1.25); POTASSIUM 4.1 mmol/L (3.5-5.1)
[2024-05-01] VITALS (7 sets, daily range): BP systolic 129–167; BP diastolic 77–94; PULSE 86–99; RESP 17–20; TEMP 97.6–97.7; O2SAT 97–100
[2024-05-01] MEDS ORDERED: ACETAMINOPHEN 325 MG TAB PO PRN (23:00)
[2024-05-02] VITALS: BP 168/84; PULSE 98; RESP 20; TEMP 97.7; O2SAT 100
[2024-05-02] MEDS: Morphine 4mg INJECTION 4 MG/ML INJ IV PRN (05:07)
[2024-05-02 06:24] VITALS: BP 144/90; PULSE 94; RESP 20; TEMP 97.3; O2SAT 100
[2024-05-02 07:44] VITALS: BP 144/90; PULSE 94; RESP 20; TEMP 97.3; O2SAT 100
[2024-05-02] MEDS ORDERED: ACETAMINOPHEN 1000 MG/100 ML 100 ML IV ONE (08:22)
[2024-05-02] MEDS ORDERED: PHENYLEPHRINE HCL 1% 10 MG/ML VIAL ONE (08:33)
[2024-05-02 12:00] VITALS: BP 168/81; PULSE 101; RESP 22; TEMP 97.3; O2SAT 99
[2024-05-02] MEDS: ONDANSETRON HCL 4 MG ORAL DISINTEGRATING TAB SL PRN (13:01)
[2024-05-02 16:00] VITALS: BP 157/93; PULSE 93; RESP 22; TEMP 98.2; O2SAT 99
[2024-05-02 20:00] VITALS: BP 151/78; PULSE 85; RESP 21; TEMP 98.2; O2SAT 100
[2024-05-02] MEDS: HYDROCODONE/APAP 10MG-325MG TAB PO PRN (20:39)
[2024-05-03] VITALS (8 sets, daily range): BP systolic 122–152; BP diastolic 72–99; PULSE 74–106; RESP 18–22; TEMP 97.6–98.2; O2SAT 100
[2024-05-03 05:48] LABS: BASOPHILS % 0.3 % (0.0-1.0); EOSINOPHILS # (AUTO) 0.1 (0.0-0.4); EOSINOPHILS % 0.5 % (0.0-6.0); HEMATOCRIT 29.2 % (38.2-49.6); HEMOGLOBIN 8.8 g/dL (14.0-18.0); LYMPHOCYTES # (AUTO) 0.9 (1.0-3.2); LYMPHOCYTES % 9.6 % (18.0-39.1); MEAN CORPUSCULAR HEMOGLOBIN 28.3 pg (28-32); MEAN CORPUSCULAR HGB CONC 30.1 g/dL (31-35); MEAN CORPUSCULAR VOLUME 93.9 fL (81-99); MONOCYTES # (AUTO) 1.1 (0.2-0.8); MONOCYTES % 11.4 % (4.4-11.3); NEUTROPHILS # (AUTO) 7.3 (2.1-6.9); NEUTROPHILS % 77.6 % (38.7-80.0); PLATELET COUNT 382 x10e3/uL (140-360); RED BLOOD COUNT 3.11 x10e6/uL (4.3-5.7); RED CELL DISTRIBUTION WIDTH 15.5 % (11.7-14.4); WHITE BLOOD COUNT 9.41 x10e3/uL (4.8-10.8)
[2024-05-03 06:15] LABS: ANION GAP 14.2 mmol/L (8-16); CALCIUM 9.2 mg/dL (8.4-10.2); CREATININE, SERUM 1.91 mg/dL (0.72-1.25); POTASSIUM 4.2 mmol/L (3.5-5.1)
[2024-05-04] VITALS (9 sets, daily range): BP systolic 118–163; BP diastolic 60–87; PULSE 84–106; RESP 16–20; TEMP 97.4–97.9; O2SAT 95–100
[2024-05-05] VITALS (8 sets, daily range): BP systolic 107–143; BP diastolic 70–87; PULSE 76–118; RESP 18–20; TEMP 97.7–98.2; O2SAT 99–100
[2024-05-05 05:49] LABS: BASOPHILS # (AUTO) 0.1 (0.0-0.1); BASOPHILS % 1.1 % (0.0-1.0); EOSINOPHILS # (AUTO) 0.3 (0.0-0.4); EOSINOPHILS % 5.9 % (0.0-6.0); HEMATOCRIT 26.6 % (38.2-49.6); HEMOGLOBIN 8.2 g/dL (14.0-18.0); LYMPHOCYTES # (AUTO) 1.7 (1.0-3.2); LYMPHOCYTES % 32.1 % (18.0-39.1); MEAN CORPUSCULAR HEMOGLOBIN 27.8 pg (28-32); MEAN CORPUSCULAR HGB CONC 30.8 g/dL (31-35); MEAN CORPUSCULAR VOLUME 90.2 fL (81-99); MONOCYTES # (AUTO) 0.8 (0.2-0.8); NEUTROPHILS # (AUTO) 2.3 (2.1-6.9); NEUTROPHILS % 43.2 % (38.7-80.0); PLATELET COUNT 330 x10e3/uL (140-360); RED BLOOD COUNT 2.95 x10e6/uL (4.3-5.7); RED CELL DISTRIBUTION WIDTH 15.6 % (11.7-14.4); WHITE BLOOD COUNT 5.26 x10e3/uL (4.8-10.8)
[2024-05-05 06:11] LABS: CALCIUM 9.1 mg/dL (8.4-10.2); CREATININE, SERUM 1.91 mg/dL (0.72-1.25)
[2024-05-05] MEDS ORDERED: IOPAMIDOL 370 MG/ML 100 ML INFUS..BTL INJ ONE (12:14)
[2024-05-05 12:46] LABS: INR 0.9; PROTHROMBIN TIME 12.7 seconds (11.9-14.5)
[2024-05-05] MEDS ORDERED: FENTANYL CITRATE/PF 100MCG/2 ML INJ ONE (12:46)
[2024-05-05] MEDS ORDERED: CEFTRIAXONE 1 GM VIAL ONE (12:46)
[2024-05-05] MEDS ORDERED: SODIUM CHLORIDE 0.9% 250ML 250 ML ONE (12:47)
[2024-05-06] VITALS: BP 138/72; PULSE 80; RESP 18; TEMP 97.5; O2SAT 100
[2024-05-06 04:00] VITALS: BP 120/74; PULSE 84; RESP 18; TEMP 98; O2SAT 100
[2024-05-06 07:00] VITALS: BP 161/73; PULSE 66; RESP 18; TEMP 97.4; O2SAT 100
[2024-05-06] MEDS ORDERED: PROPOFOL IV EMULSION 10 MG/ML 20 ML VIAL ONE ×3 (07:31→08:53)
[2024-05-06] MEDS ORDERED: MIDAZOLAM HCL 2 MG/2 ML VIAL ONE (07:31)
[2024-05-06] MEDS ORDERED: LIDOCAINE HCL 2% LOCAL INJ 5 ML SDV VIAL INJ ONE (07:31)
[2024-05-06] MEDS ORDERED: FENTANYL CITRATE/PF 100MCG/2 ML INJ ONE (07:31)
[2024-05-06] MEDS ORDERED: METOCLOPRAMIDE HCL 10 MG/2ML VIAL ONE (07:52)
[2024-05-06] MEDS ORDERED: ONDANSETRON HCL INJ 2MG/ML 2ML 2 MG/ML VIAL ONE (07:52)
[2024-05-06 08:53] VITALS: BP 161/73; PULSE 66; RESP 18; TEMP 97.4; O2SAT 100
[2024-05-06 09:30] VITALS: BP 161/73; PULSE 66; RESP 18; TEMP 97.4; O2SAT 100
[2024-05-06] MEDS ORDERED: BACTRIM DS TAB1 EACH PO (12:34)
[2024-05-06 13:17] VITALS: BP 116/63; PULSE 67; RESP 20; TEMP 97.8; O2SAT 100
== END 2024-05-06 13:29 | disposition home or self-care (01) | DRG 660 ==
LOC: ER 07:15 → ERHOLD 07:39 → MED/SURG2 08:45
PROVIDERS: ADMIT Internal Medicine; ATTEND Internal Medicine
PROC: 0T9130Z Drainage of Left Kidney with Drainage Device, Percutaneous Approach (ICD-10-PCS; 2024-04-24)
PROC: BT121ZZ Fluoroscopy of Left Kidney using Low Osmolar Contrast (ICD-10-PCS; 2024-04-24)
PROC: 0TC13ZZ Extirpation of Matter from Left Kidney, Percutaneous Approach (ICD-10-PCS; principal; 2024-04-24 17:06)
PROC: 0T778DZ Dilation of Left Ureter with Intraluminal Device, Via Natural or Artificial Opening Endoscopic (ICD-10-PCS; 2024-04-28)
PROC: 0TC13ZZ Extirpation of Matter from Left Kidney, Percutaneous Approach (ICD-10-PCS; 2024-04-28)
PROC: 0T25X0Z Change Drainage Device in Kidney, External Approach (ICD-10-PCS; 2024-04-28)
PROC: 0TP98DZ Removal of Intraluminal Device from Ureter, Via Natural or Artificial Opening Endoscopic (ICD-10-PCS; 2024-04-28)
PROC: 0TF48ZZ Fragmentation in Left Kidney Pelvis, Via Natural or Artificial Opening Endoscopic (ICD-10-PCS; 2024-05-02)
PROC: BT1F1ZZ Fluoroscopy of Left Kidney, Ureter and Bladder using Low Osmolar Contrast (ICD-10-PCS; 2024-05-02)
PROC: 0T25X0Z Change Drainage Device in Kidney, External Approach (ICD-10-PCS; 2024-05-05)
PROC: BT121ZZ Fluoroscopy of Left Kidney using Low Osmolar Contrast (ICD-10-PCS; 2024-05-05)
PROC: 0T778DZ Dilation of Left Ureter with Intraluminal Device, Via Natural or Artificial Opening Endoscopic (ICD-10-PCS; 2024-05-06)
PROC: 0TP98DZ Removal of Intraluminal Device from Ureter, Via Natural or Artificial Opening Endoscopic (ICD-10-PCS; 2024-05-06)
PROC: BT1D1ZZ Fluoroscopy of Right Kidney, Ureter and Bladder using Low Osmolar Contrast (ICD-10-PCS; 2024-05-06)
PROC: 0TP5X0Z Removal of Drainage Device from Kidney, External Approach (ICD-10-PCS; 2024-05-06)
PROC: 0TC18ZZ Extirpation of Matter from Left Kidney, Via Natural or Artificial Opening Endoscopic (ICD-10-PCS; 2024-05-06)
PROC: 0T768DZ Dilation of Right Ureter with Intraluminal Device, Via Natural or Artificial Opening Endoscopic (ICD-10-PCS; 2024-05-06 07:35)
DX: N13.6 Pyonephrosis (principal); T83.84XA Pain due to genitourinary prosthetic devices, implants and grafts, initial encounter; Z16.24 Resistance to multiple antibiotics; Y83.1 Surgical operation with implant of artificial internal device as the cause of abnormal reaction of the patient, or of later complication, without mention of misadventure at the time of the procedure; Y92.009 Unspecified place in unspecified non-institutional (private) residence as the place of occurrence of the external cause; Z46.6 Encounter for fitting and adjustment of urinary device; Z96.0 Presence of urogenital implants; R31.9 Hematuria, unspecified; N17.9 Acute kidney failure, unspecified; E86.0 Dehydration; E11.649 Type 2 diabetes mellitus with hypoglycemia without coma; E11.22 Type 2 diabetes mellitus with diabetic chronic kidney disease; I12.9 Hypertensive chronic kidney disease with stage 1 through stage 4 chronic kidney disease, or unspecified chronic kidney disease; N18.30 Chronic kidney disease, stage 3 unspecified; Z79.85 Long-term (current) use of injectable non-insulin antidiabetic drugs; D64.9 Anemia, unspecified; E66.9 Obesity, unspecified; Z68.33 Body mass index [BMI] 33.0-33.9, adult; Z71.3 Dietary counseling and surveillance; Z98.84 Bariatric surgery status; Z71.81 Spiritual or religious counseling; Z89.421 Acquired absence of other right toe(s); Z79.899 Other long term (current) drug therapy
CPT/HCPCS: 36415; 50387; 50436; 71045; 74018; 74420; 74470; 76942; 80048; 80053; 81001; 82948; 83036; 83735; 83970; 84550; 85025; 85610; 85730; 87086; 87186; 88300; 96372; 99252; 99283; C1758; C1769; C2617; J0696; J1100; J1200; J2003; J2185; J2250; J2270; J2371; J2405; J2543; J2710; J2765; J7030; J7050; J7799; Q0162; Q9967

== ENCOUNTER → 2024-06-23 | Day surgery (SDC) | payer OTHER ==
[2024-06-22 10:46] LABS: BASOPHILS # (AUTO) 0.1 (0.0-0.1); BASOPHILS % 0.7 % (0.0-1.0); EOSINOPHILS # (AUTO) 0.3 (0.0-0.4); EOSINOPHILS % 3.2 % (0.0-6.0); HEMATOCRIT 29.9 % (38.2-49.6); HEMOGLOBIN 9.5 g/dL (14.0-18.0); LYMPHOCYTES # (AUTO) 1.3 (1.0-3.2); LYMPHOCYTES % 13.1 % (18.0-39.1); MEAN CORPUSCULAR HEMOGLOBIN 28.9 pg (28-32); MEAN CORPUSCULAR HGB CONC 31.8 g/dL (31-35); MEAN CORPUSCULAR VOLUME 90.9 fL (81-99); MONOCYTES # (AUTO) 0.9 (0.2-0.8); MONOCYTES % 9.3 % (4.4-11.3); NEUTROPHILS % 73.3 % (38.7-80.0); PLATELET COUNT 476 x10e3/uL (140-360); RED BLOOD COUNT 3.29 x10e6/uL (4.3-5.7); RED CELL DISTRIBUTION WIDTH 13.2 % (11.7-14.4); WHITE BLOOD COUNT 9.55 x10e3/uL (4.8-10.8)
[2024-06-22 11:06] LABS: ALBUMIN 3.1 g/dL (3.5-5.0); ALBUMIN/GLOBULIN RATIO 0.7 (0.8-2.0); BILIRUBIN,TOTAL 0.3 mg/dL (0.2-1.2); CALCIUM 9.6 mg/dL (8.4-10.2); CREATININE, SERUM 2.39 mg/dL (0.72-1.25); TOTAL PROTEIN 7.8 g/dL (6.5-8.1)
[~2024-06-23] MED LIST changes: +ACETAMINOPHEN 1000 MG/100 ML 100 ML IV ONE; +BACTRIM DS TAB1 EACH PO; +DEXMEDETOMIDINE HCL 2 ML ONE; +EPHEDRINE SULFATE INJ 50 MG/ML VIAL ONE; +FAMOTIDINE 20 MG/2 ML VIAL IV ONE; +FENTANYL CITRATE/PF 100MCG/2 ML INJ ONE; +LIDOCAINE HCL 2% LOCAL INJ 5 ML SDV VIAL INJ ONE; +ONDANSETRON HCL INJ 2MG/ML 2ML 2 MG/ML VIAL ONE; +PHENYLEPHRINE HCL 1% 10 MG/ML VIAL ONE; +PROPOFOL IV EMULSION 10 MG/ML 20 ML VIAL ONE; +SEVOFLURANE INHAL SOLN 250 ML PEN BTL ONE; +SODIUM CHLORIDE 0.9% 100 ML ONE
[2024-06-23] MEDS: LACTATED RINGER'S 1,000 ML ONE (10:26)
[2024-06-23] MEDS: GENTAMICIN 80MG/NS 100 ML 100 ML IV ONE (10:27)
[2024-06-23] MEDS: PIPERACILLIN/TAZOBACTAM 3.375 GM VIAL ONE (10:27)
[2024-06-23] MEDS: DEXTROSE 5% 250ML 250 ML IV ONE ×2 (10:34→10:35)
[2024-06-23 12:38] VITALS: TEMP 97.4
[2024-06-23] MEDS: PHENAZOPYRIDINE HCL 100 MG TAB ONE (12:53)
[2024-06-23 13:16] VITALS: BP 156/80; PULSE 103; RESP 18; O2SAT 97
== END | disposition home or self-care (01) ==
LOC: OR 08:54
PROVIDERS: ATTEND Urology
DX: N20.0 Calculus of kidney (principal); N13.30 Unspecified hydronephrosis; Z46.6 Encounter for fitting and adjustment of urinary device; N40.1 Benign prostatic hyperplasia with lower urinary tract symptoms; E11.22 Type 2 diabetes mellitus with diabetic chronic kidney disease; I12.9 Hypertensive chronic kidney disease with stage 1 through stage 4 chronic kidney disease, or unspecified chronic kidney disease; N18.9 Chronic kidney disease, unspecified; G47.33 Obstructive sleep apnea (adult) (pediatric); D64.9 Anemia, unspecified; E78.5 Hyperlipidemia, unspecified; Z88.1 Allergy status to other antibiotic agents; Z01.812 Encounter for preprocedural laboratory examination; Z01.818 Encounter for other preprocedural examination; Z79.84 Long term (current) use of oral hypoglycemic drugs; Z79.85 Long-term (current) use of injectable non-insulin antidiabetic drugs; Z79.899 Other long term (current) drug therapy; Z68.32 Body mass index [BMI] 32.0-32.9, adult; Z87.891 Personal history of nicotine dependence
CPT/HCPCS: 36415; 52332; 52352; 52356; 74018; 74420; 80053; 83970; 84550; 85025; 87086; 88300; C1766; C1769; C2617; J0131; J1580; J2003; J2371; J2405; J2543; J2704; J3010; J7050; J7121

== ENCOUNTER 2024-12-06 05:34 | Inpatient (IN) | payer OTHER ==
[2024-12-04 14:46] LABS: BASOPHILS % 1.2 % (0.0-1.0); EOSINOPHILS % 3.5 % (0.0-6.0); LYMPHOCYTES % 11.8 % (18.0-39.1); MONOCYTES % 8.7 % (4.4-11.3); NEUTROPHILS % 73.8 % (38.7-80.0); RED CELL DISTRIBUTION WIDTH 12.4 % (11.7-14.4)
[2024-12-04 15:18] LABS: EST GLOMERULAR FILTRATION RATE 20.0 ML/MIN (>=60)
[~2024-12-06] VITALS: Ht 182.9 cm; Wt 115.7 kg
[~2024-12-06 05:34] MED LIST changes: -ACETAMINOPHEN 1000 MG/100 ML 100 ML IV ONE; -DEXMEDETOMIDINE HCL 2 ML ONE; -EPHEDRINE SULFATE INJ 50 MG/ML VIAL ONE; -FAMOTIDINE 20 MG/2 ML VIAL IV ONE; -FENTANYL CITRATE/PF 100MCG/2 ML INJ ONE; -LIDOCAINE HCL 2% LOCAL INJ 5 ML SDV VIAL INJ ONE; -ONDANSETRON HCL INJ 2MG/ML 2ML 2 MG/ML VIAL ONE; -PHENYLEPHRINE HCL 1% 10 MG/ML VIAL ONE; -PROPOFOL IV EMULSION 10 MG/ML 20 ML VIAL ONE; -SEVOFLURANE INHAL SOLN 250 ML PEN BTL ONE; -SODIUM CHLORIDE 0.9% 100 ML ONE
[2024-12-06] MEDS ORDERED: FENTANYL CITRATE/PF 100MCG/2 ML INJ ONE ×4 (07:42→09:03)
[2024-12-06] MEDS ORDERED: MIDAZOLAM HCL 2 MG/2 ML VIAL ONE ×2 (07:42→09:03)
[2024-12-06] MEDS ORDERED: LIDOCAINE HCL 2% LOCAL INJ 5 ML SDV VIAL INJ ONE ×2 (07:44→09:03)
[2024-12-06] MEDS ORDERED: PROPOFOL IV EMULSION 10 MG/ML 20 ML VIAL ONE ×2 (07:44→09:03)
[2024-12-06] MEDS ORDERED: GLYCOPYRROLATE INJ 0.2 MG/ML VIAL ONE ×2 (07:49→09:03)
[2024-12-06] MEDS ORDERED: FAMOTIDINE 20 MG/2 ML VIAL IV ONE ×2 (07:49→09:03)
[2024-12-06] MEDS ORDERED: METOCLOPRAMIDE HCL 10 MG/2ML VIAL ONE ×2 (07:49→09:03)
[2024-12-06] MEDS ORDERED: KETAMINE HCL INJ 50 MG/ML 10 ML VIAL ONE (07:52)
[2024-12-06] MEDS: MEROPENEM 1 GM VIAL ONE (08:49)
[2024-12-06] MEDS: SODIUM CHLORIDE 0.9% 1000ML 1,000 ML ONE (08:49)
[2024-12-06] MEDS ORDERED: IOPAMIDOL 610MG/1ML 300 MG/ML VIAL IV ONE (09:03)
[2024-12-06] MEDS ORDERED: FLUCONAZOLE 200 MG/100 ML 0 ML IV ONE (09:03)
[2024-12-06] MEDS ORDERED: ONDANSETRON HCL INJ 2MG/ML 2ML 2 MG/ML VIAL ONE (09:03)
[2024-12-06] MEDS ORDERED: DIPHENHYDRAMINE HCL 25 MG CAP PO PRN (10:45)
[2024-12-06] MEDS ORDERED: ACETAMINOPHEN 1000 MG/100 ML IV PRN (10:45)
[2024-12-06] MEDS ORDERED: ONDANSETRON HCL INJ 2MG/ML 2ML 2 MG/ML VIAL IV PRN (10:45)
[2024-12-06] MEDS ORDERED: PHENAZOPYRIDINE HCL 100 MG TAB ONE (12:17)
[2024-12-06] MEDS: PHENAZOPYRIDINE HCL 100 MG TAB PO PRN (12:21)
[2024-12-06] MEDS: ACETAMINOPHEN/CODEINE 300MG - 30MG TAB ONE (12:53)
[2024-12-06] MEDS: FENTANYL CITRATE/PF 100MCG/2 ML INJ ONE (13:14)
[2024-12-06 15:12] VITALS: PULSE 58; RESP 18; O2SAT 99
[2024-12-06] MEDS ORDERED: ONDANSETRON HCL 4 MG ORAL DISINTEGRATING TAB SL PRN (15:15)
[2024-12-06] MEDS: SODIUM CHLORIDE 0.9% 1000ML 1,000 ML IV SCH (15:24)
[2024-12-06 15:37] VITALS: BP 151/83; PULSE 106; RESP 17; TEMP 97.9; O2SAT 100
[2024-12-06] MEDS: SENNA-S TABLET PO SCH (17:21)
[2024-12-06] MEDS: METOPROLOL TARTRATE 50 MG TAB PO SCH (17:22)
[2024-12-06] MEDS: Morphine 2mg Syringe 2 MG/ML SYR IV PRN (17:23)
[2024-12-06 19:58] VITALS: PULSE 102; RESP 18; O2SAT 99
[2024-12-06 20:00] VITALS: BP 146/80; PULSE 93; RESP 20; TEMP 98.6; O2SAT 100
[2024-12-06] MEDS: ATORVASTATIN 20 MG TAB PO SCH (20:50)
[2024-12-06 20:59] VITALS: BP 146/80; PULSE 93; RESP 20; TEMP 98.6; O2SAT 100
[2024-12-07] VITALS (8 sets, daily range): BP systolic 117–147; BP diastolic 70–91; PULSE 92–112; RESP 18–20; TEMP 98–98.6; O2SAT 98–100
[2024-12-07 05:32] LABS: BASOPHILS % 1.1 % (0.0-1.0); EOSINOPHILS % 3.3 % (0.0-6.0); LYMPHOCYTES % 7.7 % (18.0-39.1); MONOCYTES % 15.6 % (4.4-11.3); NEUTROPHILS % 71.5 % (38.7-80.0); RED CELL DISTRIBUTION WIDTH 12.6 % (11.7-14.4)
[2024-12-07 06:07] LABS: EST GLOMERULAR FILTRATION RATE 23.0 ML/MIN (>=60)
[2024-12-07] MEDS: TAMSULOSIN HCL 0.4 MG CAP PO SCH (08:11)
[2024-12-07] MEDS: MULTIVITAMINS/MINERALS TAB PO SCH (08:11)
[2024-12-07] MEDS: ACETAMINOPHEN/CODEINE 300MG - 30MG TAB PO PRN (08:14)
[2024-12-07] MEDS ORDERED: DEXTROSE 50% SYRINGE 50 ML IV PRN (10:00)
[2024-12-07] MEDS: FLUCONAZOLE 100 MG/NS 50 ML 50 ML IV SCH (10:46)
[2024-12-07] MEDS: INSULIN GLARGINE 100 UNITS/ML VIAL SQ ONE (10:47)
[2024-12-07] MEDS: INSULIN LISPRO 100 UNIT/1 ML 3ML VIAL SQ SCH (11:27)
[2024-12-07] MEDS: INSULIN GLARGINE 100 UNITS/ML VIAL SQ SCH (22:24)
[2024-12-08] VITALS: BP 133/71; PULSE 95; RESP 20; TEMP 98.3; O2SAT 100
[2024-12-08 04:00] VITALS: BP 141/95; PULSE 106; RESP 20; TEMP 97.7; O2SAT 100
[2024-12-08 05:58] LABS: EST GLOMERULAR FILTRATION RATE 26.0 ML/MIN (>=60)
[2024-12-08 06:37] LABS: BASOPHILS % 1.5 % (0.0-1.0); EOSINOPHILS % 6.2 % (0.0-6.0); LYMPHOCYTES % 18.1 % (18.0-39.1); MONOCYTES % 15.5 % (4.4-11.3); NEUTROPHILS % 57.5 % (38.7-80.0); RED CELL DISTRIBUTION WIDTH 12.9 % (11.7-14.4)
[2024-12-08 07:45] VITALS: PULSE 125; RESP 20; O2SAT 97
[2024-12-08 08:24] VITALS: BP 155/76; PULSE 107; RESP 22; TEMP 97.9; O2SAT 98
[2024-12-08 12:25] VITALS: BP 148/78; PULSE 86; RESP 17; TEMP 97.9; O2SAT 97
== END 2024-12-08 13:23 | disposition home or self-care (01) | DRG 661 ==
LOC: OR 05:34 → PACU V 10:40 → MED/SURG 14:15
PROVIDERS: ADMIT Internal Medicine; ATTEND Internal Medicine
PROC: 0TC18ZZ Extirpation of Matter from Left Kidney, Via Natural or Artificial Opening Endoscopic (ICD-10-PCS; 2024-12-06)
PROC: 0TP98DZ Removal of Intraluminal Device from Ureter, Via Natural or Artificial Opening Endoscopic (ICD-10-PCS; 2024-12-06)
PROC: 0TC68ZZ Extirpation of Matter from Right Ureter, Via Natural or Artificial Opening Endoscopic (ICD-10-PCS; 2024-12-06)
PROC: BT140ZZ Fluoroscopy of Kidneys, Ureters and Bladder using High Osmolar Contrast (ICD-10-PCS; 2024-12-06)
PROC: BT1B1ZZ Fluoroscopy of Bladder and Urethra using Low Osmolar Contrast (ICD-10-PCS; 2024-12-06)
PROC: 0T768DZ Dilation of Right Ureter with Intraluminal Device, Via Natural or Artificial Opening Endoscopic (ICD-10-PCS; principal; 2024-12-06 07:42)
PROC: 0TP Urinary System, Removal (ICD-10-PCS; 2024-12-06 07:42)
DX: N13.6 Pyonephrosis (principal); E11.22 Type 2 diabetes mellitus with diabetic chronic kidney disease; I12.9 Hypertensive chronic kidney disease with stage 1 through stage 4 chronic kidney disease, or unspecified chronic kidney disease; N18.4 Chronic kidney disease, stage 4 (severe); D63.1 Anemia in chronic kidney disease; E11.51 Type 2 diabetes mellitus with diabetic peripheral angiopathy without gangrene; E66.01 Morbid (severe) obesity due to excess calories; E78.5 Hyperlipidemia, unspecified; G47.33 Obstructive sleep apnea (adult) (pediatric); R31.9 Hematuria, unspecified; N35.919 Unspecified urethral stricture, male, unspecified site; N40.1 Benign prostatic hyperplasia with lower urinary tract symptoms; N32.89 Other specified disorders of bladder; R32 Unspecified urinary incontinence; N28.89 Other specified disorders of kidney and ureter; Z79.4 Long term (current) use of insulin; Z79.85 Long-term (current) use of injectable non-insulin antidiabetic drugs; Z79.84 Long term (current) use of oral hypoglycemic drugs; Z98.84 Bariatric surgery status; Z89.422 Acquired absence of other left toe(s); Z89.421 Acquired absence of other right toe(s)
CPT/HCPCS: 36415; 71046; 74018; 74420; 80048; 80053; 82948; 83735; 83970; 84550; 85025; 87086; 93005; 94799; C1766; C2617; J1308; J1450; J1815; J2003; J2185; J2250; J2270; J2405; J2765; J7030

== ENCOUNTER → 2025-01-24 | Outpatient (REF) | payer OTHER ==
[2025-01-24 14:14] LABS: BASOPHILS % 0.5 % (0.0-1.0); EOSINOPHILS % 0.3 % (0.0-6.0); LYMPHOCYTES % 18.2 % (18.0-39.1); MONOCYTES % 3.8 % (4.4-11.3); NEUTROPHILS % 75.5 % (38.7-80.0); RED CELL DISTRIBUTION WIDTH 14.1 % (11.7-14.4)
[2025-01-24 14:50] LABS: EST GLOMERULAR FILTRATION RATE 8.0 ML/MIN (>=60)
[2025-02-02 21:10] LABS: EST GLOMERULAR FILTRATION RATE 21.0 ML/MIN (>=60)
== END ==
LOC: RAD 08:00 → EDSTATUS 02-02 07:00
PROVIDERS: ATTEND Urology
DX: Z01.818 Encounter for other preprocedural examination (principal)
CPT/HCPCS: 36415; 74018; 80048; 80053; 83970; 84550; 85025

== ENCOUNTER 2025-02-01 11:53 | Inpatient (IN) | payer OTHER ==
[2025-02-01] VITALS (10 sets, daily range): BP systolic 96–154; BP diastolic 60–141; PULSE 97–120; RESP 14–22; TEMP 97.6–98.1; O2SAT 98–100
[~2025-02-01] VITALS: Ht 182.9 cm; Wt 98.9 kg
[2025-02-01] MEDS ORDERED: SODIUM CHLORIDE 0.9% 1000ML 1,000 ML IV STA (12:58)
[2025-02-01 13:01] LABS: BASOPHILS % 0.1 % (0.0-1.0); EOSINOPHILS % 0.0 % (0.0-6.0); LYMPHOCYTES % 4.5 % (18.0-39.1); MONOCYTES % 4.1 % (4.4-11.3); NEUTROPHILS % 88.7 % (38.7-80.0); RED CELL DISTRIBUTION WIDTH 13.9 % (11.7-14.4)
[2025-02-01] MEDS ORDERED: SODIUM CHLORIDE 0.9% IV SCH (13:15)
[2025-02-01 13:31] LABS: EST GLOMERULAR FILTRATION RATE 7 ML/MIN (>=60)
[2025-02-01 13:38] LABS: INR 1.25
[2025-02-01] MEDS ORDERED: SODIUM CHLORIDE 0.9% 1000ML 1,000 ML IV SCH (14:00)
[2025-02-01 14:01] LABS: LEUKOCYTE ESTERASE ,URINE LARGE (NEGATIVE); PROTEIN,URINE DIPSTICK >=300 (NEGATIVE); URINE UROBILINOGEN 0.2 mg/dL (0.2 - 1)
[2025-02-01 14:19] LABS: WBC,URINE (MAN) >50 /HPF (0-5)
[2025-02-01 14:24] LABS: YEAST,URINE FEW
[2025-02-01] MEDS ORDERED: LIDOCAINE HCL 1% 30ML-PF VIAL ONE (14:52)
[2025-02-01] MEDS ORDERED: HEPARIN SOD (PORCINE) 1000 UNIT/ML SDV ONE ×2 (14:52→18:39)
[2025-02-01 15:00] LABS: CORONAVIRUS COVID-19 AG NEGATIVE (NEGATIVE)
[2025-02-01] MEDS ORDERED: DEXTROSE 50% SYRINGE 50 ML IV PRN (15:00)
[2025-02-01] MEDS: SODIUM CHLORIDE 0.9% 1000ML 1,000 ML IV STA (15:39)
[2025-02-01] MEDS: SODIUM BICARBONATE 8.4% INJ 50 ML SYR IV STA (15:40)
[2025-02-01] MEDS: FUROSEMIDE INJ 10 MG/ML 4 ML VIAL IV ONE (15:41)
[2025-02-01] MEDS: CALCIUM GLUC 1 G/50 ML NACL 50 ML IV ONE (15:41)
[2025-02-01] MEDS: DEXTROSE 50% SYRINGE 50 ML IV STA (15:48)
[2025-02-01] MEDS: INSULIN REGULAR, HUMAN 100 UNIT/1 ML IV ONE (15:50)
[2025-02-01] MEDS: ACETAMINOPHEN 1000 MG/100 ML IV ONE (15:56)
[2025-02-01] MEDS ORDERED: SODIUM CHLORIDE 0.9% 1000ML 2,000 ML ONE (16:29)
[2025-02-01] MEDS: INSULIN LISPRO 100 UNIT/1 ML 3ML VIAL SQ SCH (16:30)
[2025-02-01] MEDS ORDERED: MANNITOL 25% 12.5GM/50ML 100 ML ONE (16:40)
[2025-02-01] MEDS: METOPROLOL TARTRATE 50 MG TAB PO SCH (17:00)
[2025-02-01] MEDS: SODIUM BICARBONATE 8.4% VIAL 150 ML in DEXTROSE 5% 1,000 ML IV SCH (18:48)
[2025-02-01 20:48] LABS: EST GLOMERULAR FILTRATION RATE 11.0 ML/MIN (>=60)
[2025-02-01] MEDS: ATORVASTATIN 20 MG TAB PO SCH (21:39)
[2025-02-01] MEDS: Vancomycin IV 1 GM in SODIUM CHLORIDE 0.9% 250ML 250 ML IV ONE (21:55)
[2025-02-01] MEDS: DEXTROSE 5% 1,000 ML IV SCH (22:04)
[2025-02-01] MEDS: SODIUM BICARBONATE 8.4% SYRING 100 ML ONE (22:08)
[2025-02-01] MEDS: SODIUM BICARBONATE 8.4% VIAL 100 ML in DEXTROSE 5% 1,000 ML IV SCH (22:08)
[2025-02-02] VITALS (23 sets, daily range): BP systolic 86–150; BP diastolic 55–116; PULSE 97–122; RESP 12–20; TEMP 97.4–98.4; O2SAT 95–100
[2025-02-02 05:32] LABS: BASOPHILS % 0.1 % (0.0-1.0); EOSINOPHILS % 0.0 % (0.0-6.0); LYMPHOCYTES % 5.6 % (18.0-39.1); MONOCYTES % 10.0 % (4.4-11.3); NEUTROPHILS % 83.5 % (38.7-80.0); RED CELL DISTRIBUTION WIDTH 13.9 % (11.7-14.4)
[2025-02-02 06:19] LABS: CREATININE,URINE RANDOM 32.75 mg/dL (63-166); TOTAL PROTEIN, URINE 51.6 mg/dL (1-14)
[2025-02-02 06:24] LABS: CHOL/HDL RATIO 2.8 (3.9-4.7); EST GLOMERULAR FILTRATION RATE 9.0 ML/MIN (>=60); LDL CHOLESTEROL 91.0 MG/DL (60-130)
[2025-02-02] MEDS ORDERED: SODIUM CHLORIDE 0.9% 1000ML 2,000 ML IV PRN (09:15)
[2025-02-02] MEDS ORDERED: HEPARIN SOD (PORCINE) 1000 UNIT/ML SDV IV PRN (09:15)
[2025-02-02] MEDS ORDERED: ALBUMIN 25% 12.5GM 0.25 GM/ML BTL IV PRN (09:15)
[2025-02-02 14:45] LABS: EST GLOMERULAR FILTRATION RATE 10.0 ML/MIN (>=60)
[2025-02-02] MEDS: DEXTROSE 5% 1,000 ML IV SCH (23:07)
[2025-02-03] VITALS (59 sets, daily range): BP systolic 74–131; BP diastolic 43–93; PULSE 79–118; RESP 11–26; TEMP 97.8–98.2; O2SAT 83–100
[2025-02-03] MEDS: VASOPRESSIN 60 UNIT in DEXTROSE 5% 50ML 50 ML IV SCH (04:22)
[2025-02-03 05:30] LABS: BASOPHILS % 0.0 % (0.0-1.0); EOSINOPHILS % 0.2 % (0.0-6.0); LYMPHOCYTES % 11.0 % (18.0-39.1); MONOCYTES % 17.4 % (4.4-11.3); NEUTROPHILS % 71.0 % (38.7-80.0); RED CELL DISTRIBUTION WIDTH 14.4 % (11.7-14.4)
[2025-02-03 06:50] LABS: EST GLOMERULAR FILTRATION RATE 18.0 ML/MIN (>=60)
[2025-02-03] MEDS: DEXTROSE 5% 1,000 ML IV ONE (07:29)
[2025-02-03 17:46] LABS: EST GLOMERULAR FILTRATION RATE 26.0 ML/MIN (>=60)
[2025-02-04] VITALS (25 sets, daily range): BP systolic 92–139; BP diastolic 56–87; PULSE 73–106; RESP 11–21; TEMP 97.4–98.6; O2SAT 96–100
[2025-02-04 08:46] LABS: BASOPHILS % 0.9 % (0.0-1.0); EOSINOPHILS % 2.2 % (0.0-6.0); LYMPHOCYTES % 14.7 % (18.0-39.1); MONOCYTES % 20.8 % (4.4-11.3); NEUTROPHILS % 61.2 % (38.7-80.0); RED CELL DISTRIBUTION WIDTH 14.6 % (11.7-14.4)
[2025-02-04 09:04] LABS: EST GLOMERULAR FILTRATION RATE 21.0 ML/MIN (>=60)
[2025-02-04 11:31] LABS: BAND NEUTROPHILS % (MANUAL) 12 %; EOSINOPHILS % (MANUAL) 1 % (0-7); LYMPHOCYTES % (MANUAL) 19 % (19-48); METAMYELOCYTES % (MANUAL) 4 % (0-0); MONOCYTES % (MANUAL) 10 % (3.4-9.0); NEUTROPHILS % (MANUAL) 53 % (40-74); REACTIVE LYMPHOCYTES 1
[2025-02-04 11:32] LABS: PLATELET ESTIMATE ADEQUATE; PLATELET MORPHOLOGY COMMENT NORMAL; RBC MORPHOLOGY COMMENT NORMAL
[2025-02-04] MEDS: POTASSIUM CHLORIDE 20 MEQ TAB CR PO STA (13:02)
[2025-02-04] MEDS: SODIUM CHLORIDE 0.9% 1000ML 1,000 ML IV SCH (13:03)
[2025-02-04 17:10] LABS: OSMOLALITY,SERUM OSMOMETER 347 mOsmol/kg (275-295)
[2025-02-04 19:20] LABS: OSMOLALITY,URINE 298 mOsmol/kg (.)
[2025-02-04 19:24] LABS: HEPATITIS B CORE AB TOTAL NEGATIVE; HEPATITIS B SURFACE AB QUANT <3.5
[2025-02-04 19:25] LABS: HEPATITIS B SURFACE AG (P) NEGATIVE
[2025-02-05] VITALS (21 sets, daily range): BP systolic 125–176; BP diastolic 71–106; PULSE 67–125; RESP 11–29; TEMP 97.5–98.2; O2SAT 94–100
[2025-02-05 07:21] LABS: EST GLOMERULAR FILTRATION RATE 20.0 ML/MIN (>=60)
[2025-02-05] MEDS: NYSTATIN/TRIAMCINOLONE 15 GM CR TOP SCH (10:45)
[2025-02-05] MEDS: FLUCONAZOLE 100 MG TAB PO ONE (12:41)
[2025-02-06] VITALS (12 sets, daily range): BP systolic 103–147; BP diastolic 62–89; PULSE 87–117; RESP 13–23; TEMP 97.5–98.4; O2SAT 96–100
[2025-02-06 06:43] LABS: BASOPHILS % 1.0 % (0.0-1.0); EOSINOPHILS % 5.6 % (0.0-6.0); LYMPHOCYTES % 20.5 % (18.0-39.1); MONOCYTES % 15.5 % (4.4-11.3); NEUTROPHILS % 56.8 % (38.7-80.0); RED CELL DISTRIBUTION WIDTH 14.7 % (11.7-14.4)
[2025-02-06 07:05] LABS: EST GLOMERULAR FILTRATION RATE 23.0 ML/MIN (>=60)
[2025-02-06] MEDS: FLUCONAZOLE 100 MG TAB PO SCH (08:32)
[2025-02-06] MEDS: EPOETIN ALFA-EPBX 10,000 UNIT/ML VIAL SC SCH (16:06)
[2025-02-06 16:14] LABS: % IRON SATURATION 12 % (15-50)
[2025-02-07] VITALS (9 sets, daily range): BP systolic 112–151; BP diastolic 63–98; PULSE 94–115; RESP 12–20; TEMP 97.5–99; O2SAT 96–100
[2025-02-07 06:09] LABS: BASOPHILS % 1.4 % (0.0-1.0); EOSINOPHILS % 7.5 % (0.0-6.0); LYMPHOCYTES % 25.1 % (18.0-39.1); MONOCYTES % 14.6 % (4.4-11.3); NEUTROPHILS % 50.7 % (38.7-80.0); RED CELL DISTRIBUTION WIDTH 14.4 % (11.7-14.4)
[2025-02-07 06:43] LABS: EST GLOMERULAR FILTRATION RATE 22.0 ML/MIN (>=60)
[2025-02-07] MEDS: SODIUM FERRIC GLUCONATE COMPLX 125 MG in SODIUM CHLORIDE 0.9% 100 ML IV SCH (16:46)
[2025-02-07] MEDS: LACTATED RINGER'S 1,000 ML INJ ONE (16:46)
[2025-02-08] VITALS: BP 129/66; PULSE 82; RESP 18; TEMP 98.2; O2SAT 99
[2025-02-08 04:00] VITALS: BP 139/66; PULSE 98; RESP 20; TEMP 98.2; O2SAT 99
[2025-02-08 05:19] LABS: EST GLOMERULAR FILTRATION RATE 21.0 ML/MIN (>=60)
[2025-02-08 07:45] VITALS: BP 129/67; PULSE 116; RESP 20; TEMP 98.5
[2025-02-08 09:27] VITALS: BP 129/67; PULSE 116; RESP 20; TEMP 98.5; O2SAT 99
[2025-02-08 16:45] VITALS: BP 119/72; PULSE 109; RESP 20; TEMP 98.3; O2SAT 100
[2025-02-08] MEDS: SODIUM CHLORIDE 0.9% 250ML 250 ML IV ONE (18:33)
[2025-02-08 20:00] VITALS: BP 129/73; PULSE 85; RESP 19; TEMP 98.1; TEMP 98.9; O2SAT 99
[2025-02-08] MEDS: FUROSEMIDE INJ 10 MG/ML 2 ML VIAL IV ONE (22:34)
[2025-02-09] VITALS (9 sets, daily range): BP systolic 114–143; BP diastolic 68–84; PULSE 87–119; RESP 14–20; TEMP 97.9–99; O2SAT 95–100
[2025-02-09] MEDS: FUROSEMIDE INJ 10 MG/ML 2 ML VIAL IV ONE (03:56)
[2025-02-09 05:16] LABS: BASOPHILS % 1.2 % (0.0-1.0); EOSINOPHILS % 7.7 % (0.0-6.0); LYMPHOCYTES % 25.2 % (18.0-39.1); MONOCYTES % 18.9 % (4.4-11.3); NEUTROPHILS % 45.2 % (38.7-80.0); RED CELL DISTRIBUTION WIDTH 17.0 % (11.7-14.4)
[2025-02-09 05:40] LABS: EST GLOMERULAR FILTRATION RATE 25.0 ML/MIN (>=60)
[2025-02-09] MEDS ORDERED: LIDOCAINE HCL 2% LOCAL INJ 5 ML SDV VIAL INJ ONE (12:00)
[2025-02-09] MEDS ORDERED: PROPOFOL IV EMULSION 10 MG/ML 20 ML VIAL ONE ×2 (12:00→12:21)
[2025-02-09] MEDS ORDERED: ACETAMINOPHEN 1000 MG/100 ML 100 ML IV ONE (12:00)
[2025-02-09] MEDS ORDERED: FENTANYL CITRATE/PF 100MCG/2 ML INJ ONE (12:12)
[2025-02-09] MEDS ORDERED: METOCLOPRAMIDE HCL 10 MG/2ML VIAL ONE (12:13)
[2025-02-09] MEDS ORDERED: FAMOTIDINE 20 MG/2 ML VIAL IV ONE (12:13)
[2025-02-09] MEDS ORDERED: PHENAZOPYRIDINE HCL 100 MG TAB PO PRN (13:30)
[2025-02-09] MEDS: HYDROCODONE/APAP 10MG-325MG TAB PO PRN (18:18)
[2025-02-10] VITALS (8 sets, daily range): BP systolic 84–153; BP diastolic 50–112; PULSE 100–120; RESP 18–20; TEMP 98–98.8; O2SAT 98–100
[2025-02-10 06:53] LABS: BASOPHILS % 1.0 % (0.0-1.0); EOSINOPHILS % 0.5 % (0.0-6.0); LYMPHOCYTES % 8.0 % (18.0-39.1); MONOCYTES % 13.5 % (4.4-11.3); NEUTROPHILS % 75.3 % (38.7-80.0); RED CELL DISTRIBUTION WIDTH 17.6 % (11.7-14.4)
[2025-02-10 07:22] LABS: EST GLOMERULAR FILTRATION RATE 15.0 ML/MIN (>=60)
[2025-02-10] MEDS: SODIUM CHLORIDE 0.9% 1000ML 1,000 ML IV SCH (09:30)
[2025-02-10] MEDS: SODIUM CHLORIDE 0.9% 250ML 250 ML ONE (21:10)
[2025-02-10] MEDS: FUROSEMIDE INJ 10 MG/ML 2 ML VIAL IV ONE (21:10)
[2025-02-10] MEDS: CEFEPIME HCL 1 GM VIAL ONE (21:11)
[2025-02-11] VITALS (11 sets, daily range): BP systolic 98–119; BP diastolic 59–73; PULSE 84–103; RESP 18–20; TEMP 97.5–98.3; O2SAT 96–100
[2025-02-11 06:25] LABS: BASOPHILS % 0.7 % (0.0-1.0); EOSINOPHILS % 2.8 % (0.0-6.0); LYMPHOCYTES % 15.1 % (18.0-39.1); MONOCYTES % 14.5 % (4.4-11.3); NEUTROPHILS % 65.5 % (38.7-80.0); RED CELL DISTRIBUTION WIDTH 17.8 % (11.7-14.4)
[2025-02-11 06:41] LABS: EST GLOMERULAR FILTRATION RATE 13.0 ML/MIN (>=60)
[2025-02-11] MEDS: SODIUM FERRIC GLUCONATE COMPLX 125 MG in SODIUM CHLORIDE 0.9% 100 ML IV ONE (11:28)
[2025-02-12] VITALS (8 sets, daily range): BP systolic 108–119; BP diastolic 71–82; PULSE 82–96; RESP 18–20; TEMP 97.6–98; O2SAT 95–100
[2025-02-12 05:07] LABS: BASOPHILS % 1.3 % (0.0-1.0); EOSINOPHILS % 4.3 % (0.0-6.0); LYMPHOCYTES % 16.6 % (18.0-39.1); MONOCYTES % 17.1 % (4.4-11.3); NEUTROPHILS % 59.6 % (38.7-80.0); RED CELL DISTRIBUTION WIDTH 17.4 % (11.7-14.4)
[2025-02-12 05:26] LABS: EST GLOMERULAR FILTRATION RATE 16.0 ML/MIN (>=60)
[2025-02-13] VITALS: BP 115/71; PULSE 90; RESP 18; TEMP 97.6; O2SAT 100
[2025-02-13 04:00] VITALS: BP 138/81; PULSE 97; RESP 16; TEMP 97.4; O2SAT 99
[2025-02-13 05:48] LABS: BASOPHILS % 0.9 % (0.0-1.0); EOSINOPHILS % 3.9 % (0.0-6.0); LYMPHOCYTES % 23.5 % (18.0-39.1); MONOCYTES % 18.4 % (4.4-11.3); NEUTROPHILS % 52.0 % (38.7-80.0); RED CELL DISTRIBUTION WIDTH 17.5 % (11.7-14.4)
[2025-02-13 06:17] LABS: EST GLOMERULAR FILTRATION RATE 21.0 ML/MIN (>=60)
[2025-02-13 08:00] VITALS: BP 126/78; PULSE 99; RESP 18; TEMP 97.5; O2SAT 99
[2025-02-13 08:10] VITALS: BP 126/78; PULSE 98; RESP 18; TEMP 97.8; O2SAT 99
[2025-02-13 08:20] VITALS: PULSE 105; RESP 18; O2SAT 99
[2025-02-13 12:05] VITALS: BP 128/72; PULSE 98; RESP 18; TEMP 98.8; O2SAT 99
[2025-02-21 07:18] LABS: ABG BASE EXCESS -23.0 mmol/L (-2 - 3); ABG HCO3 7 mmol/L (22-26); ABG OXYGEN SATURATION 29.0 % (95-98); ABG PCO2 20 mmHg (35-45); ABG PH 7.11 (7.35-7.45); ABG PO2 25 mmHg (80-105); ABG TCO2 7
== END 2025-02-13 13:40 | disposition home or self-care (01) | DRG 659 ==
LOC: ER 12:51 → ERHOLD 14:12 → ICU 19:46 → MED/SURG 02-07 19:11
PROVIDERS: ADMIT Internal Medicine; ATTEND Internal Medicine
PROC: 05HM33Z Insertion of Infusion Device into Right Internal Jugular Vein, Percutaneous Approach (ICD-10-PCS; principal; 2025-02-01)
PROC: 4A033B1 Measurement of Arterial Pressure, Peripheral, Percutaneous Approach (ICD-10-PCS; 2025-02-01)
PROC: 4A043B1 Measurement of Venous Pressure, Peripheral, Percutaneous Approach (ICD-10-PCS; 2025-02-01)
PROC: 5A1D70Z Performance of Urinary Filtration, Intermittent, Less than 6 Hours Per Day (ICD-10-PCS; 2025-02-01)
PROC: 30233N1 Transfusion of Nonautologous Red Blood Cells into Peripheral Vein, Percutaneous Approach (ICD-10-PCS; 2025-02-08)
PROC: 0T788DZ Dilation of Bilateral Ureters with Intraluminal Device, Via Natural or Artificial Opening Endoscopic (ICD-10-PCS; 2025-02-09)
PROC: 0T9 Urinary System, Drainage (ICD-10-PCS; 2025-02-09)
PROC: 0TP98DZ Removal of Intraluminal Device from Ureter, Via Natural or Artificial Opening Endoscopic (ICD-10-PCS; 2025-02-09)
PROC: 0TP98DZ Removal of Intraluminal Device from Ureter, Via Natural or Artificial Opening Endoscopic (ICD-10-PCS; 2025-02-09)
PROC: 0TC08ZZ Extirpation of Matter from Right Kidney, Via Natural or Artificial Opening Endoscopic (ICD-10-PCS; 2025-02-09)
PROC: 0TC48ZZ Extirpation of Matter from Left Kidney Pelvis, Via Natural or Artificial Opening Endoscopic (ICD-10-PCS; 2025-02-09)
PROC: 0T9B8ZZ Drainage of Bladder, Via Natural or Artificial Opening Endoscopic (ICD-10-PCS; 2025-02-09)
PROC: BT141ZZ Fluoroscopy of Kidneys, Ureters and Bladder using Low Osmolar Contrast (ICD-10-PCS; 2025-02-09)
DX: T83.592A Infection and inflammatory reaction due to indwelling ureteral stent, initial encounter (principal); A41.9 Sepsis, unspecified organism; G92.8 Other toxic encephalopathy; R65.20 Severe sepsis without septic shock; N17.9 Acute kidney failure, unspecified; D68.9 Coagulation defect, unspecified; E87.20 Acidosis, unspecified; E87.1 Hypo-osmolality and hyponatremia; N13.8 Other obstructive and reflux uropathy; B37.49 Other urogenital candidiasis; N13.6 Pyonephrosis; I12.9 Hypertensive chronic kidney disease with stage 1 through stage 4 chronic kidney disease, or unspecified chronic kidney disease; E11.22 Type 2 diabetes mellitus with diabetic chronic kidney disease; N18.9 Chronic kidney disease, unspecified; R06.82 Tachypnea, not elsewhere classified; R53.1 Weakness; R00.0 Tachycardia, unspecified; E87.5 Hyperkalemia; E66.9 Obesity, unspecified; D50.9 Iron deficiency anemia, unspecified; R80.9 Proteinuria, unspecified; E11.40 Type 2 diabetes mellitus with diabetic neuropathy, unspecified; N39.41 Urge incontinence; E11.51 Type 2 diabetes mellitus with diabetic peripheral angiopathy without gangrene; G47.33 Obstructive sleep apnea (adult) (pediatric); Z96.0 Presence of urogenital implants; R33.9 Retention of urine, unspecified; N40.1 Benign prostatic hyperplasia with lower urinary tract symptoms; N32.0 Bladder-neck obstruction; R31.29 Other microscopic hematuria; D64.9 Anemia, unspecified; E83.51 Hypocalcemia; N28.1 Cyst of kidney, acquired; E86.0 Dehydration; R63.0 Anorexia; N20.0 Calculus of kidney; Z89.421 Acquired absence of other right toe(s); Z11.52 Encounter for screening for COVID-19; Z91.81 History of falling; Z87.442 Personal history of urinary calculi; Z98.84 Bariatric surgery status; Z79.85 Long-term (current) use of injectable non-insulin antidiabetic drugs; Z89.422 Acquired absence of other left toe(s); Z88.1 Allergy status to other antibiotic agents; Z87.440 Personal history of urinary (tract) infections
CPT/HCPCS: 36415; 36556; 36600; 70450; 71045; 72125; 74176; 74420; 74470; 76770; 76937; 77001; 80048; 80053; 80061; 81001; 82550; 82570; 82805; 82948; 83540; 83605; 83735; 83880; 83930; 83935; 84156; 84466; 84484; 85025; 85610; 85730; 86704; 86706; 86850; 86900; 86920; 87040; 87086; 87340; 93005; 94799; 96372; 99252; 99285; C1758; C1769; C2617; J0692; J1308; J1644; J1938; J2003; J2150; J2765; J2916; J7030; J7050; J7070; J7799; P9016